=== PATIENT | male | born 1975 | race Caucasian/White ===

== ENCOUNTER 2020-04-02 13:01 | Outpatient (REF) | payer MEDICARE, MEDICAID, SELFPAY ==
--- NOTE | 2020-04-02 13:44 | XR_ITS ---
EXAMINATION: CHEST 2 VIEWS CLINICAL INFORMATION: Chest pain. COMPARISON: June 27, 2008. TECHNIQUE: PA and lateral views of the chest were obtained. FINDINGS: The cardiac silhouette is not enlarged. The mediastinal and hilar contours are unremarkable. There are neither pleural effusions nor pneumothoraces. There are no consolidations. The osseous structures are stable. XR/XR chest 2V IMPRESSION: No evidence for acute disease.
[2020-04-02 13:51] LABS: MANUAL DIFF FLAG NO
[2020-04-02 14:00] LABS: Basophils Percent Auto 0.7 % (0-2); Eosinophils Absolute Auto 0.3 X10*3/uL (0.0-0.4); Hematocrit 42.8 % (42-52); Imm Gran Abs Auto 0.02 X10*3/uL (0.00-0.03); Imm Gran Pct Auto 0.3 % (0.0-0.4); Lymphocytes Absolute Auto 1.7 X10*3/uL (1.2-4.9); Lymphocytes Percent Auto 28.9 % (20-40); Mean Corpuscular HGB Conc 32.7 g/dl (31.0-36.0); Mean Corpuscular Hemoglobin 29.9 pg (27.0-33.0); Mean Corpuscular Volume 91.5 fL (80-98); Mean Platelet Volume 9.1 fL (9.4-12.4); Monocytes Absolute Auto 0.5 X10*3/uL (0.1-1.2); Monocytes Percent Auto 9.2 % (2-11); Neutrophils Absolute Auto 3.2 X10*3/uL (2.0-8.3); Neutrophils Percent Auto 55.9 % (45-73); Platelet Count 280 X10*3/uL (160-400); Red Blood Count 4.68 X10*6/uL (4.60-5.80); Red Cell Distribution Width 12.7 % (11.0-16.0); White Blood Count 5.8 X10*3/uL (4.8-10.8)
[2020-04-02 14:29] LABS: Alanine Aminotransferase < 6 U/L (0-40); Albumin Level 4.6 g/dL (3.5-5.0); Alkaline Phosphatase 90 U/L (39-117); Anion Gap 13 (12-20); Aspartate Amino Transferase 16 U/L (5-37); Bilirubin Total 0.7 mg/dL (0.0-1.0); Blood Urea Nitrogen 13 mg/dL (9-16); C Reactive Protein 0.53 mg/dL (< or = 0.50); Calcium 9.3 mg/dL (8.4-10.2); Carbon Dioxide 28 mmol/L (22-29); Chloride 104 mmol/L (96-108); Cholesterol 179 mg/dL; Estimated Glomerular Filt Rate > 60; Glucose Random 101 mg/dL (60-115); Potassium 4.4 mmol/l (3.3-5.1); Sodium 141 mmol/L (135-145)
== END 2020-04-02 13:02 | disposition home or self-care (01) ==
LOC: HO.LAB 13:01
PROVIDERS: PCP Internal Medicine; Visit Provider Internal Medicine
DX: R07.9 Chest pain, unspecified (principal)
CPT/HCPCS: 36415; 71046; 80053; 82465; 85025; 86140

== ENCOUNTER → 2021-04-28 10:27 | Outpatient (BNVA) | payer MEDICARE, MEDICAID, SELFPAY | PROVIDERS: PCP Internal Medicine; Referring Provider Internal Medicine; Visit Provider Surgery | DX: L98.9 Disorder of the skin and subcutaneous tissue, unspecified (principal) | CPT/HCPCS: 99202 ==

== ENCOUNTER 2021-05-20 12:45 | Outpatient (REF) | payer MEDICARE, MEDICAID, SELFPAY ==
[2021-05-20 12:55] VITALS: BP 131/84; PULSE 101; RESP 16; TEMP 36.4; O2SAT 100; BMI 31.3
--- NOTE | 2021-05-20 13:25 | W.PM.OPN ---
Operative Note Operative Note Date of Service: 05/20/21 Narrative: Preop diagnosis: Skin lesion, left temporal area Postop diagnosis: Skin lesion, left temporal area Procedure: Excision of skin lesion, left temporal area under local anesthesia Surgeon: Ramón Villeda MD The patient is a 45-year-old male with a skin lesion in the left temporal area about 1 cm in widest dimension, earlier, superficially ulcerating, suggestive of basal cell carcinoma. He understood the technique of excision under local anesthesia. He was aware of the risks, benefits, and alternatives He was brought to the minor procedure room and placed supine with the head turned to the right expose the lesion. The areas prepped and draped. Lidocaine 1% was used for local anesthesia. An elliptical incision was made in the skin surrounding this lesion using blade 15. We made sure that there were margins of normal looking skin. This incision was carried down through the full-thickness of the skin and part of subcutaneous layer to excise this entire lesion. This was sent as a specimen. I closed the incision with full-thickness nylon 5 0 interrupted sutures. Steri-Strips were then applied . He tolerated procedure well. There were no complications noted. He was given wound care instructions and will be seen in the office for removal sutures next week.
== END 2021-05-20 12:46 | disposition home or self-care (01) ==
LOC: HO.MS 12:45
PROVIDERS: PCP Internal Medicine; Visit Provider Surgery
PROC: (CPT 11642; principal; 2021-05-20 13:00)
DX: C44.319 Basal cell carcinoma of skin of other parts of face (principal); H91.90 Unspecified hearing loss, unspecified ear
CPT/HCPCS: 11642; 88305

== ENCOUNTER → 2021-06-02 13:03 | Outpatient (BNVA) | payer MEDICARE, MEDICAID, SELFPAY | PROVIDERS: PCP Internal Medicine; Referring Provider Internal Medicine; Visit Provider Surgery | DX: Z48.3 Aftercare following surgery for neoplasm (principal); Z85.828 Personal history of other malignant neoplasm of skin | CPT/HCPCS: 99212 ==

== ENCOUNTER 2021-06-17 14:32 | Outpatient (REF) | payer MEDICARE, MEDICAID, SELFPAY ==
--- NOTE | ~2021-06-17 | US_ITS ---
EXAMINATION: US VENOUS ULTRASOUND WITH DOPPLER LOWER EXTREMITY, LEFT CLINICAL INFORMATION: Left calf pain COMPARISON: None TECHNIQUE: Ultrasound of the deep veins is performed from the hip to the calf with compression sonography and color and pulse Doppler assessment. Spectral analysis with color-flow imaging is performed. FINDINGS: There is normal venous compression and respiratory variation and augmented flow. The visualized common femoral vein, superficial femoral vein, profunda femoral vein, popliteal vein, and the trifurcation region shows no evidence of deep venous thrombosis. There is no significant popliteal fossa cyst. If the patient's symptoms persist, followup ultrasound in 5 days 7 days might be of value to exclude proximal propagation from a non-visualized calf vein. US/US venous duplex LE LT IMPRESSION: No DVT demonstrated in the left lower extremity.
== END 2021-06-17 14:33 | disposition home or self-care (01) ==
LOC: HO.US 14:32
PROVIDERS: PCP Internal Medicine; Visit Provider Internal Medicine
DX: M79.662 Pain in left lower leg (principal)
CPT/HCPCS: 93971

== ENCOUNTER 2021-09-14 11:23 | Outpatient (REF) | payer MEDICARE, MEDICAID, OTHER, SELFPAY ==
[2021-09-14 11:48] LABS: MANUAL DIFF FLAG NO
[2021-09-14 12:24] LABS: Appearance Urine HAZY; Color Urine YELLOW; Glucose Urine UA NEG (NEG); Leukocyte Esterase Urine NEG (NEG); Nitrite Urine NEG (NEG); Specific Gravity - Urine >= 1.030 (1.005-1.025); UACC Culture Trigger NO; Urine Blood NEG (NEG); Urine Ketones 5 MG/DL (NEG); Urine Protein 1+ MG/DL (NEG-TRACE)
[2021-09-14 12:25] LABS: Basophils Percent Auto 0.2 % (0-2); Eosinophils Absolute Auto 0.1 X10*3/uL (0.0-0.4); Hematocrit 40.8 % (42.0-52.0); Hemoglobin 13.5 g/dl (14.0-18.0); Imm Gran Abs Auto 0.06 X10*3/uL (0.00-0.03); Imm Gran Pct Auto 0.5 % (0.0-0.4); Lymphocytes Percent Auto 8.6 % (20-40); Mean Corpuscular HGB Conc 33.1 g/dl (31.0-36.0); Mean Corpuscular Hemoglobin 29.9 pg (27.0-33.0); Mean Corpuscular Volume 90.3 fL (80.0-98.0); Mean Platelet Volume 9.6 fL (9.4-12.4); Monocytes Percent Auto 9.1 % (2-11); Neutrophils Absolute Auto 9.3 x10*3/uL (2.0-8.3); Neutrophils Percent Auto 80.6 % (45-73); Platelet Count 250 X10*3/uL (160-400); Red Blood Count 4.52 X10*6/uL (4.60-5.80); Red Cell Distribution Width 13.2 % (11.0-16.0); White Blood Count 11.5 X10*3/uL (4.8-10.8)
[2021-09-14 12:31] LABS: D Dimer High Sensitivity 243 NG/ML
[2021-09-14 12:44] LABS: Bacteria Urine TRACE /LPF; RBC Urine 0-2 /HPF (0); WBC Urine 0-2 /HPF (0-4)
[2021-09-14 12:45] LABS: Mucus Urine 1+ /LPF
[2021-09-14 12:51] LABS: Troponin-I High Sensitivity < 3.5 ng/L (<3.5-35.0)
[2021-09-14 12:53] LABS: Alanine Aminotransferase < 6 U/L (0-40); Albumin Level 4.4 g/dL (3.5-5.0); Alkaline Phosphatase 86 U/L (39-117); Anion Gap 15 (12-20); Aspartate Amino Transferase 9 U/L (5-37); Bilirubin Total 0.6 mg/dL (0.0-1.0); Blood Urea Nitrogen 12 mg/dL (9-16); C Reactive Protein 27.74 mg/dL (< or = 0.50); Calcium 9.8 mg/dL (8.4-10.2); Carbon Dioxide 27 mmol/L (22-29); Chloride 102 mmol/L (96-108); Estimated Glomerular Filt Rate > 60; Glucose Random 123 mg/dL (60-115); Potassium 3.9 mmol/L (3.3-5.1); Sodium 140 mmol/L (135-145); Total Protein 7.1 g/dL (6.5-8.0)
[2021-09-14 13:13] LABS: Free T4 (Free Thyroxine) 1.12 ng/dL (0.71-1.85)
[2021-09-14 14:17] LABS: Prostate Specific Antigen 0.29 ng/mL (<0.05-4.0)
== END 2021-09-14 11:24 | disposition home or self-care (01) ==
LOC: HO.LAB 11:23
PROVIDERS: PCP Internal Medicine; Visit Provider Internal Medicine
DX: Z12.5 Encounter for screening for malignant neoplasm of prostate (principal); R00.0 Tachycardia, unspecified; N32.89 Other specified disorders of bladder
CPT/HCPCS: 36415; 80053; 81001; 82550; 84153; 84439; 84443; 84484; 85025; 85379; 86140; 87086

== ENCOUNTER 2021-09-16 12:52 | Outpatient (REF) | payer MEDICARE, MEDICAID, OTHER, SELFPAY ==
--- NOTE | ~2021-09-16 | CT_ITS ---
EXAMINATION: CT ABDOMEN AND PELVIS WITH CONTRAST CLINICAL INFORMATION: Abdominal pain. Bladder spasms. COMPARISON: None TECHNIQUE: Multidetector volumetric images were obtained from the superior aspect of the liver through the pubic symphysis following administration 85 mL of Omnipaque 350 intravenous contrast. Sagittal and coronal reformatted images were obtained on the technologist's workstation. Oral contrast: No This CT examination was performed using dose optimization techniques as appropriate, variously including the following: *Automated exposure control *Adjustment of mA and/or kV according to patient size (this includes techniques or standardized protocols for targeted exams where dose is matched to indication/reason for exam; i.e. extremities or head) *Use of iterative reconstruction technique DLP: 736 mGy-cm FINDINGS: LUNG BASES: Minimal atelectatic changes seen in the lingula and right lower lobe. Heart size is normal. There is a small hiatal hernia. LIVER, GALLBLADDER, AND BILIARY TREE: The liver is normal in size, shape, and attenuation. No focal hepatic lesion or biliary ductal dilatation is present. The gallbladder is unremarkable with no evidence of radiopaque gallstones, gallbladder wall thickening, or obvious pericholecystic inflammatory changes. PANCREAS: Unremarkable. SPLEEN: Unremarkable. ADRENAL GLANDS: Unremarkable. KIDNEYS AND URETERS: The kidneys are normal in size, shape, and attenuation. No hydronephrosis, hydroureter, or calculi seen. No perinephric stranding. BLADDER: Unremarkable. GASTROINTESTINAL TRACT: There is a contained perforation of the cecum most likely from a diverticulitis. There is diffuse colonic diverticulosis with moderate constipation but no distention. The appendix is normal caliber. The small bowel loops are normal caliber. No free air or free fluid seen in the pelvis. ABDOMINAL WALL: No significant hernia is appreciated. LYMPH NODES: Normal. VASCULAR: Unremarkable. PELVIC VISCERA: The prostate gland is a normal size with central gland calcification. OSSEOUS STRUCTURES: Unremarkable. CT/CT abdomen pelvis w con IMPRESSION: Diffuse colonic diverticulosis with cecal diverticulitis and contained perforation. There is no free air, proximal bowel obstruction or free fluid. Mild constipation. Results were conveyed to Dr. Zheng immediately after exam at 1:45 PM and ER physician Dr. Mitchell at 3:40 PM on 09/16/2021. Fleischner guidelines were followed.
[2021-09-16] MEDS: iohexoL 350 MG/ML 100 ML INFUS..BTL IV (14:32)
== END 2021-09-16 12:53 | disposition home or self-care (01) ==
LOC: HO.CT 12:52
PROVIDERS: PCP Internal Medicine; Visit Provider Internal Medicine
DX: Z13.89 Encounter for screening for other disorder (principal)
CPT/HCPCS: 74177; Q9967

== ENCOUNTER 2021-09-16 14:23 | Inpatient (IN) | payer MEDICARE, MEDICAID, SELFPAY ==
[2021-09-16 14:26] VITALS: BP 141/93; PULSE 118; RESP 16; TEMP 36.3; O2SAT 96; BMI 31.8
--- NOTE | 2021-09-16 16:10 | ED_ITS ---
HPI - Abdominal Pain General Chief Complaint: Abdominal Pain Stated Complaint: abd cat scan Time Seen by Provider: 09/16/21 14:52 Source: patient Mode of arrival: ambulatory History of Present Illness HPI narrative: 46-year-old male with medical history Parkinson's, deaf, sent to ED by Dr. Zheng for abnormal CT, patient reports RLQ abdominal pain, constipation and mild nausea x1 week. Was seen in PCP office 2 days ago had labs, and outpatient CT today. Admits last BM yesterday. Also reports dysuria. Denies fever, chills, vomiting, diarrhea, hematuria, flank pain MD elicited complaint: abdominal pain Related Data Home Medications Medication Instructions Recorded Confirmed carbidopa ER 50 mg-levodopa 200 mg 1 tab PO BID 04/28/21 09/16/21 tablet,extended release clonazepam 1 mg tablet 1 mg PO BEDTIME PRN 04/28/21 09/16/21 paroxetine HCl 40 mg tablet 40 mg PO DAILY 04/28/21 09/16/21 pramipexole 0.25 mg tablet 0.25 mg PO TID 04/28/21 09/16/21 baclofen 20 mg tablet 1 tab PO BEDTIME 09/16/21 09/16/21 carbidopa 25 mg-levodopa 100 mg 1 tab PO TID 09/16/21 09/16/21 tablet pramipexole 0.125 mg tablet 1 tab PO TID 09/16/21 09/16/21 Allergies Allergy/AdvReac Type Severity Reaction Status Date / Time No Known Allergies Allergy Verified 06/02/21 13:14 Review of Systems Review of Systems Constitutional: No Fever, No Chills, No Fatigue, No Malaise ENT/Mouth: No Ear Pain, No Nasal Congestion, No sore throat, No Rhinorrhea, No Swallowing Difficulty Eyes: No Eye Pain, No Swelling, No Discharge, No Vision Changes Cardiovascular: No Chest Pain, No SOB, No Edema, No Palpitations Respiratory: No Cough, No Sputum, No Wheezing, No Smoke Exposure, No Dyspnea Gastrointestinal: + Nausea, No Vomiting, No Diarrhea, No Constipation, + Abdominal pain Genitourinary: + Dysuria, No Urinary Frequency, No Hematuria,No Urgency, No Flank Pain, No Urinary Flow Changes, No Hesitancy Musculoskeletal: No joint pain, No Myalgias, No Joint Swelling Skin: No Skin Lesions, No rash Neuro: No Weakness, No Dizziness, No Headache Yes all other systems are reviewed and are negative [facility] Past Medical History Attestation statement: The following information was validated with the patient. Medical History Basal cell carcinoma (BCC) Deaf Parkinsons disease Skin lesion of face Surgical History History of excision of pilonidal cyst (~1994) Family History Family History Other Colon cancer Esophageal cancer Social History Social History Advance Directives: No Advance Directives Information Provided: Yes Physical Exam ED Vital Signs: Vital Signs - 24 hr 09/16/21 14:26 Temperature 97.4 F Pulse Rate 118 H Respiratory Rate 16 Blood Pressure 141/93 H Pulse Oximetry 96 BMI result Body Mass Index 31.8 Const General: cooperative, healthy appearing and no acute distress Orientation/consciousness: patient oriented x3 Limitations: no limitations HENMT Head: Yes normal to inspection Ears: hearing grossly normal bilaterally General nose exam: Normal external nose present Face and sinus: Yes normal facial exam Eyes General: appearance normal, both eyes and all related structures EOM: EOMs intact bilaterally Neck Neck: Yes normal visual inspection and Yes no meningeal signs Resp Effort & Inspection: normal respiratory effort and no respiratory distress Auscultation: clear to auscultation bilaterally, no rales, no rhonchi and no wheezes Cardio Rate: regular rate and tachycardic Heart sounds: S1 normal heart sound present and S2 normal heart sound present GI Inspection: Yes normal to inspection Palpation (GI): Soft to palpation, Tenderness to palpation present (GI) in the RLQ; Negative for with no rebound tenderness, no guarding and not rigid General: Yes no CVA tenderness Back/Spine/Pelvis Back: no CVA tenderness Skin Rashes: no rashes Wounds: no wounds Neuro General: patient oriented x3 and no meningeal signs Gait exam (Neuro): Normal gait present Extrem General: Yes normal to inspection Course Course Course Narrative: Labs reviewed from 09/14/21 > mild leukocytosis of 11.5, CRP elevated CT abdomen pelvis w con IMPRESSION: Diffuse colonic diverticulosis with cecal diverticulitis and contained perforation. There is no free air, proximal bowel obstruction or free fluid. Mild constipation. >> call from [facility] taken by Dr. Mitchell > Levaquin/Flagyl ordered as well as 30mg/kg IVF. Surgery consulted -surgery, Dr. Matta evaluated patient in the ED, plan to admit for IV antibiotics and observation -no leukocytosis. H&H at patient's baseline. Lactic acid negative MDM - Abdominal Pain MDM Narrative Medical decision making narrative: 46-year-old male with medical history Parkinson's, deaf, sent to ED by Dr. Zheng for abnormal CT, patient reports RLQ abdominal pain, constipation and mild nausea x1 week. On exam tachycardic likely from pain, afebrile, NAD, abdomen tender in RLQ, no rebound or guarding. Concern for appendicitis vs diverticulitis vs UTI. Unlikely renal stone/pyelo Low concern for severe sepsis at this time as outpatient labs 2 days ago without leukocytosis, tachycardia likely from pain Plan: Labs, UA, CT, IVF, re-evaluate Medical Records Attestation: I reviewed the patient's medical records. Lab Data Attestation: I reviewed the patient's lab results. Result diagrams: 09/16/21 16:13 09/16/21 16:13 Labs: Lab Results 09/16/21 09/16/21 Range/Units 16:13 16:13 WBC 6.5 (4.8-10.8) X10*3/uL RBC 4.41 L (4.60-5.80) X10*6/uL Hgb 13.1 L (14.0-18.0) g/dl Hct 40.5 L (42.0-52.0) % MCV 91.8 (80.0-98.0) fL MCH 29.7 (27.0-33.0) pg MCHC 32.3 (31.0-36.0) g/dl RDW 13.2 (11.0-16.0) % Plt Count 237 (160-400) X10*3/uL MPV 9.1 L (9.4-12.4) fL Immature Gran % (Auto) 0.2 (0.0-0.4) % Neut % (Auto) 75.0 H (45-73) % Lymph % (Auto) 13.8 L (20-40) % [place] % (Auto) 8.0 (2-11) % Eos % (Auto) 2.5 (0-4) % Baso % (Auto) 0.5 (0-2) % Lymph # (Auto) 0.9 L (1.2-4.9) X10*3/uL [place] # (Auto) 0.5 (0.1-1.2) X10*3/uL Eos # (Auto) 0.2 (0.0-0.4) X10*3/uL Baso # (Auto) 0.0 (0.0-0.2) X10*3/uL Abs Immat Gran (auto) 0.01 (0.00-0.03) X10*3/uL Absolute Neuts (auto) 4.9 (2.0-8.3) x10*3/uL Absolute Nucleated RBC 0.000 (0.0-0.012) X10*3/uL Nucleated RBC % (auto) 0.0 (0.0-0.2) /100WBC Lactic Acid 0.9 (0.5-2.0) mmol/L Discharge Plan Discharge Clinical Impression: Diverticulitis of colon with perforation Patient Disposition: Admitted As Inpatient
--- NOTE | 2021-09-16 16:17 | PHA.MEDREC ---
Pharmacy Consult ? Medication Reconciliation Pharmacy has completed the medication reconciliation. Spoke with the patient who was able to confirm his home medications and he also had a list at bedside.
[2021-09-16] MEDS: 0.9 % Sodium Chloride 1,983 ML 1983 ML IV (16:19)
[2021-09-16 16:22] LABS: MANUAL DIFF FLAG NO
[2021-09-16 16:23] LABS: Basophils Percent Auto 0.5 % (0-2); Eosinophils Absolute Auto 0.2 X10*3/uL (0.0-0.4); Eosinophils Percent Auto 2.5 % (0-4); Hematocrit 40.5 % (42.0-52.0); Hemoglobin 13.1 g/dl (14.0-18.0); Imm Gran Abs Auto 0.01 X10*3/uL (0.00-0.03); Imm Gran Pct Auto 0.2 % (0.0-0.4); Lymphocytes Absolute Auto 0.9 X10*3/uL (1.2-4.9); Lymphocytes Percent Auto 13.8 % (20-40); Mean Corpuscular HGB Conc 32.3 g/dl (31.0-36.0); Mean Corpuscular Hemoglobin 29.7 pg (27.0-33.0); Mean Corpuscular Volume 91.8 fL (80.0-98.0); Mean Platelet Volume 9.1 fL (9.4-12.4); Monocytes Absolute Auto 0.5 X10*3/uL (0.1-1.2); Neutrophils Absolute Auto 4.9 x10*3/uL (2.0-8.3); Platelet Count 237 X10*3/uL (160-400); Red Blood Count 4.41 X10*6/uL (4.60-5.80); Red Cell Distribution Width 13.2 % (11.0-16.0); White Blood Count 6.5 X10*3/uL (4.8-10.8)
[2021-09-16] MEDS: metroNIDAZOLE/NS 500 MG/100 ML PIGGYBACK 100 MG IV (16:23)
--- NOTE | 2021-09-16 16:30 | PM.HPGS ---
History of Present Illness History of Present Illness Date of Service: 09/16/21 Chief complaint: abd cat scan Narrative: Braxton Corea is a 46 year old male presenting with complaints of abdominal pain in the right lower quadrant. The pain developed over the last several days but became more severe over the last 24 hours. Initially thought he had appendicitis and presented to his PCP. A CT of the abdomen and pelvis was subsequently obtained which revealed a contained perforation probably from cecal diverticulitis. A normal appendix is identified. Today the patient actually feels somewhat improved but still has tenderness in the right lower quadrant. He denies nausea, vomiting, fever, or chills. He is constipated however. Denies any bleeding in his bowels. Review of Systems Constitutional: Constitutional: Denies chills, Denies fever(s), Denies headache(s) and Denies poor appetite ENT: Denies dizziness and Denies headache(s) Comments: Deafness (patient is able to read lips.) Cardiovascular: Cardiovascular: Denies chest pain, Denies rapid heart rate, Denies palpitations and Denies slow heart rate Respiratory: Respiratory: Denies chest congestion, Denies cough, Denies pain on inspiration and Denies wheezing Gastrointestinal: Gastrointestinal: Reports abdominal pain, Denies bloating, Denies change in stool character, Reports constipation, Denies diarrhea, Denies nausea, Denies vomiting and Denies hematemesis Musculoskeletal: Musculoskeletal: Denies back pain, Denies arthralgias, Denies joint swelling and Denies numbness Integumentary/Breasts: Skin/Breast: Denies change in pigmentation, Denies erythema and Denies rash Neurologic: Denies dizziness, Denies headache(s) and Denies numbness Comments: Parkinson's disease Psychiatric: Psychiatric: Denies anxiety and Denies depression Endocrine: Endocrine: Denies palpitations Hematologic/Lymphatic: Hematologic/Lymphatic: Denies easy bleeding, Denies easy bruising and Denies lymphadenopathy Allergic/Immunologic: Allergic/Immunologic: Denies wheezing PMFSH Past Medical History Medical History (Updated 09/16/21 @ 16:26 by HANNAH Farrar) Basal cell carcinoma (BCC) Deaf Parkinsons disease Skin lesion of face Family History Family History Other Colon cancer Esophageal cancer Surgical History Surgical History History of excision of pilonidal cyst (~1994) Social History Social History Advance Directives: No Advance Directives Information Provided: Yes Meds Allergies Allergy/AdvReac Type Severity Reaction Status Date / Time No Known Allergies Allergy Verified 06/02/21 13:14 Active Medications: Current Medications Acetaminophen (Acetaminophen 325 Mg Tablet) 650 mg PO QID PRN PRN Reason: headache, temp > 101 Hydromorphone HCl (Hydromorphone Hcl 1 Mg/Ml Syringe) 0.5 mg IVPUSH Q4H PRN; Protocol PRN Reason: Pain, Severe (Pain Scale 7-10) Sodium Chloride (Ns) 1,983 mls @ 1,983 mls/hr IV .Q1H STA Stop: 09/16/21 16:54 Last Admin: 09/16/21 16:19 Dose: 1,983 mls/hr Documented by: Levofloxacin (Levaquin) 750 mg in 150 mls @ 100 mls/hr IV ONCE ONE Stop: 09/16/21 17:24 Metronidazole (Flagyl) 500 mg in 100 mls @ 100 mls/hr IV ONCE ONE Stop: 09/16/21 16:54 Last Admin: 09/16/21 16:23 Dose: 100 mls/hr Documented by: Dextrose/Lactated Ringer's ([email or web address]) 1,000 mls @ 125 mls/hr IVCONT .Q8H SAI Piperacillin Sod/Tazobactam (Sod 3.375 gm/ Sodium Chloride) 50 mls @ 100 mls/hr IV Q6H SAI Ondansetron HCl (Ondansetron Hcl 4 Mg/2 Ml Vial) 4 mg IVPUSH QID PRN PRN Reason: Nausea Oxycodone HCl (Oxycodone Hcl Immed Release 5 Mg Tablet) 5 mg PO Q6H PRN PRN Reason: Pain, Moderate (Pain Scale 4-6 Pharmacy Consult (Consult Rx Perform Med Rec) 1 each MISCELLANE ONCE PRN PRN Reason: Consult order Pharmacy Consult (Consult Rx Perform Med Rec) 1 each MISCELLANE ONCE PRN PRN Reason: Consult order Sodium Chloride (0.9 % Sodium Chloride Flush 3 Ml Syringe) 3 ml IVFLUSH [facility] Zolpidem Tartrate (Zolpidem Tartrate 5 Mg Tablet) 5 mg PO BEDTIME PRN PRN Reason: Insomnia Home Medications Medication Instructions Recorded Confirmed Last Taken Type carbidopa ER 50 mg-levodopa 200 mg 1 tab PO BID 04/28/21 09/16/21 09/16/21 History tablet,extended release clonazepam 1 mg tablet 1 mg PO BEDTIME PRN 04/28/21 09/16/21 09/15/21 History paroxetine HCl 40 mg tablet 40 mg PO DAILY 04/28/21 09/16/21 09/16/21 History pramipexole 0.25 mg tablet 0.25 mg PO TID 04/28/21 09/16/21 09/16/21 History baclofen 20 mg tablet 1 tab PO BEDTIME 09/16/21 09/16/21 09/15/21 History carbidopa 25 mg-levodopa 100 mg 1 tab PO TID 09/16/21 09/16/21 09/16/21 History tablet pramipexole 0.125 mg tablet 1 tab PO TID 09/16/21 09/16/21 09/16/21 History Physical Exam Vital Signs: Vital Signs: Last Vital Signs Temp 97.4 F 09/16/21 14:26 Pulse 118 H 09/16/21 14:26 Resp 16 09/16/21 14:26 BP 141/93 H 09/16/21 14:26 Pulse Ox 96 09/16/21 14:26 BMI result Body Mass Index 31.8 Const: General: cooperative, comfortable and well developed Nutritional Appearance: well nourished Orientation/consciousness: patient oriented x3 Eyes: Sclerae: sclerae normal EOM: EOMs intact bilaterally Neck: Neck: Yes normal visual inspection Resp: Effort & Inspection: normal respiratory effort, no cough, no respiratory distress and no stridor Cardio: Jugular venous distension: no JVD GI: Inspection: Yes normal to inspection Palpation (GI): Soft to palpation, nontender, no guarding and not rigid Skin: General skin exam: dry skin Rashes: no rashes Neuro: General: patient oriented x3 and no focal motor deficits Extrem: General: Yes full ROM and Yes no clubbing, cyanosis or edema Psych: Appearance: grossly normal Results Results Labs: Short CBC 09/16/21 Range/Units 16:13 WBC 6.5 (4.8-10.8) X10*3/uL Hgb 13.1 L (14.0-18.0) g/dl Hct 40.5 L (42.0-52.0) % Plt Count 237 (160-400) X10*3/uL Abdomen CT scan report/results: image reviewed CT scan - pelvis: image reviewed Assessment and Plan (1) Diverticulitis of colon with perforation: Status: Acute Plan 46-year-old male patient presenting with complaints of abdominal pain in the right lower quadrant initially thought to have acute appendicitis however after workup with CT of the abdomen and pelvis, patient was identified as having perforated cecal diverticulitis. On examination the patient has some mild tenderness in the right lower quadrant without rebound or guarding. WBC is normal. We discussed the options of either surgical exploration verses non operative management with IV antibiotics. As his symptoms are fairly mild and is WBC is normal, he is a good candidate for non operative management. He understands that if his symptoms worsen he may require surgical exploration and a possible ostomy. I will plan on repeating the CT abdomen pelvis in 1-2 days depending on his symptoms. I will keep him NPO except for meds and start Zosyn 3.375 g IV q.6 hours. Findings were also discussed with his brother. Quality Stroke Does the patient have a stroke diagnosis?: No VTE Prior VTE?: No VTE Risk Level:: Surgical - moderate VTE Device Contraindication: N/A - Device Ordered VTE Drug Contraindication: Treatment Not Indicated Procedures Date of Service Date of Service: 09/16/21
[2021-09-16 16:35] LABS: Lactic Acid 0.9 mmol/L (0.5-2.0)
[2021-09-16 16:44] LABS: COVID-19 Test Negative (Negative)
[2021-09-16 16:50] LABS: Alanine Aminotransferase < 6 U/L (0-40); Albumin Level 3.8 g/dL (3.5-5.0); Alkaline Phosphatase 88 U/L (39-117); Anion Gap 17 (12-20); Aspartate Amino Transferase 14 U/L (5-37); Bilirubin Direct < 0.2 mg/dL (0.0-0.5); Bilirubin Total 0.5 mg/dL (0.0-1.0); Blood Urea Nitrogen 11 mg/dL (9-16); C Reactive Protein 10.91 mg/dL (< or = 0.50); Carbon Dioxide 23 mmol/L (22-29); Chloride 106 mmol/L (96-108); Creatinine Clr Calc Pharmacy 131.7; Estimated Glomerular Filt Rate > 60; Glucose Random 92 mg/dL (60-115); Lipase 14 U/L (8-78); Magnesium 2.1 mg/dL (1.6-2.6); Potassium 4.8 mmol/L (3.3-5.1); Sodium 141 mmol/L (135-145); Total Protein 6.8 g/dL (6.5-8.0)
[2021-09-16 16:56] LABS: Erythrocyte Sedimentation Rate 72 MM/HR (0-15)
[2021-09-16 17:13] VITALS: BP 136/83; PULSE 97; RESP 10; TEMP 36.8; O2SAT 96
[2021-09-16] MEDS: levoFLOXacin/D5W 750 MG/150 ML PIGGYBACK 100 MG IV (17:17)
[2021-09-16 17:26] LABS: Appearance Urine CLEAR; Color Urine YELLOW; Glucose Urine UA NEG (NEG); Leukocyte Esterase Urine NEG (NEG); Nitrite Urine NEG (NEG); Urine Blood NEG (NEG); Urine Ketones NEG (NEG); Urine Protein NEG (NEG-TRACE)
[2021-09-16] MEDS: Piperacillin Sodium/Tazobactam 3.375 GM in 0.9 % Sodium Chloride 50 ML IV (19:21)
[2021-09-16] MEDS: Dextrose 5 % and Lactated Ring 1,000 ML 125 ML IVCONT (19:22)
[2021-09-16 20:32] VITALS: BP 136/68; PULSE 103; RESP 18; TEMP 36.2; O2SAT 94
[2021-09-16] MEDS: Pramipexole Di-HCL 0.125 MG TABLET PO (21:32)
[2021-09-16] MEDS: 0.9 % Sodium Chloride Flush 3 ML SYRINGE IVFLUSH (21:32)
[2021-09-16] MEDS: Pramipexole Di-HCL 0.25 MG TABLET PO (21:32)
[2021-09-16] MEDS: Carbidopa/Levodopa CR 50/200 TABLET.ER 1 TAB PO (21:32)
[2021-09-16] MEDS: Baclofen 20 MG TABLET PO (21:32)
[2021-09-16] MEDS: Carbidopa/Levodopa 25/100 TABLET 1 TAB PO (21:32)
[2021-09-16 23:41] VITALS: BP 118/62; PULSE 96; RESP 18; TEMP 36.4; O2SAT 95
[2021-09-17] MEDS: Piperacillin Sodium/Tazobactam 3.375 GM in 0.9 % Sodium Chloride 50 ML IV ×5 (01:03→23:52)
[2021-09-17] MEDS: Dextrose 5 % and Lactated Ring 1,000 ML 125 ML IVCONT ×3 (04:40→21:14)
[2021-09-17 06:29] LABS: MANUAL DIFF FLAG NO
[2021-09-17 06:47] LABS: Basophils Percent Auto 0.4 % (0-2); Eosinophils Absolute Auto 0.2 X10*3/uL (0.0-0.4); Eosinophils Percent Auto 3.1 % (0-4); Hematocrit 37.7 % (42.0-52.0); Hemoglobin 12.1 g/dl (14.0-18.0); Imm Gran Abs Auto 0.03 X10*3/uL (0.00-0.03); Imm Gran Pct Auto 0.4 % (0.0-0.4); Lymphocytes Absolute Auto 1.3 X10*3/uL (1.2-4.9); Lymphocytes Percent Auto 19.1 % (20-40); Mean Corpuscular HGB Conc 32.1 g/dl (31.0-36.0); Mean Corpuscular Hemoglobin 29.6 pg (27.0-33.0); Mean Corpuscular Volume 92.2 fL (80.0-98.0); Monocytes Absolute Auto 0.6 X10*3/uL (0.1-1.2); Monocytes Percent Auto 9.2 % (2-11); Neutrophils Absolute Auto 4.6 x10*3/uL (2.0-8.3); Neutrophils Percent Auto 67.8 % (45-73); Platelet Count 261 X10*3/uL (160-400); Red Blood Count 4.09 X10*6/uL (4.60-5.80); White Blood Count 6.8 X10*3/uL (4.8-10.8)
[2021-09-17 07:26] LABS: Anion Gap 12 (12-20); Blood Urea Nitrogen 7 mg/dL (9-16); Carbon Dioxide 27 mmol/L (22-29); Chloride 105 mmol/L (96-108); Creatinine Clr Calc Pharmacy 137.2; Estimated Glomerular Filt Rate > 60; Glucose Random 109 mg/dL (60-115); Potassium 3.9 mmol/L (3.3-5.1); Sodium 139 mmol/L (135-145)
[2021-09-17 07:40] VITALS: BP 136/76; PULSE 95; RESP 18; TEMP 36.1; O2SAT 96
--- NOTE | 2021-09-17 07:45 | P.PNGS_ITS ---
Subjective Subjective Date of Service: 09/17/21 Interval history: Patient denies significant abdominal pain this morning. He reports passing some flatus but denies bowel. Denies nausea or vomiting. He reports feeling improved. Physical Exam Vital Signs: Vital Signs: Last Vital Signs Temp 96.9 F 09/17/21 07:40 Pulse 95 09/17/21 07:40 Resp 18 09/17/21 07:40 BP 136/76 09/17/21 07:40 Pulse Ox 96 09/17/21 07:40 BMI result Body Mass Index 31.8 Const: General: comfortable and no acute distress Nutritional Appearance: well nourished Orientation/consciousness: patient oriented x3 Limitations: no limitations HEENT: Head: Yes normocephalic and Yes atraumatic Ears: hearing grossly impaired Resp: Effort & Inspection: normal respiratory effort, able to speak in complete sentences, no audible wheezes, no cough and no respiratory distress GI: Other: Soft, nondistended, mild tenderness to deep palpation in the right lower quadrant without rebound, guarding, or rigidity. Neuro: General: patient oriented x3 Extrem: Other: No edema, normal range of motion Objective Data Active Medications Acetaminophen (Acetaminophen 325 Mg Tablet) 650 mg PO QID PRN PRN Reason: headache, temp > 101 Baclofen (Baclofen 20 Mg Tablet) 20 mg PO BEDTIME [facility] Last Admin: 09/16/21 21:32 Dose: 20 mg Documented by: ANTOIC Carbidopa/Levodopa (Carbidopa/Levodopa 25/100 Tablet) 1 tab PO TID [facility] Last Admin: 09/16/21 21:32 Dose: 1 tab Documented by: ANTOIC Carbidopa/Levodopa (Carbidopa/Levodopa Cr 50/200 Tablet.Er) 1 tab PO BID [facility] Last Admin: 09/16/21 21:32 Dose: 1 tab Documented by: ANTOIC Clonazepam (Clonazepam 1 Mg Tablet) 1 mg PO BEDTIME PRN PRN Reason: Insomnia Hydromorphone HCl (Hydromorphone Hcl 1 Mg/Ml Syringe) 0.5 mg IVPUSH Q4H PRN; Protocol PRN Reason: Pain, Severe (Pain Scale 7-10) Dextrose/Lactated Ringer's (D5lr) 1,000 mls @ 125 mls/hr IVCONT .Q8H [facility] Last Admin: 09/17/21 04:40 Dose: 125 mls/hr Documented by: DEVAN Piperacillin Sod/Tazobactam (Sod 3.375 gm/ Sodium Chloride) 50 mls @ 100 mls/hr IV Q6H [facility] Last Infusion: 09/17/21 06:47 Dose: 0 mls/hr Documented by: ANTOIC Ondansetron HCl (Ondansetron Hcl 4 Mg/2 Ml Vial) 4 mg IVPUSH Q8H PRN PRN Reason: Nausea Oxycodone HCl (Oxycodone Hcl Immed Release 5 Mg Tablet) 5 mg PO Q6H PRN PRN Reason: Pain, Moderate (Pain Scale 4-6 Paroxetine HCl (Paroxetine Hcl 40 Mg Tablet) 40 mg PO DAILY [facility] Pharmacy Consult (Consult Rx Perform Med Rec) 1 each MISCELLANE ONCE PRN PRN Reason: Consult order Pramipexole Dihydrochloride (Pramipexole Di-Hcl 0.125 Mg Tablet) 0.125 mg PO TID [facility] Last Admin: 09/16/21 21:32 Dose: 0.125 mg Documented by: DEVAN Pramipexole Dihydrochloride (Pramipexole Di-Hcl 0.25 Mg Tablet) 0.25 mg PO TID [facility] Last Admin: 09/16/21 21:32 Dose: 0.25 mg Documented by: DEVAN Sodium Chloride (0.9 % Sodium Chloride Flush 3 Ml Syringe) 3 ml IVFLUSH QSHIFT [facility] Last Admin: 09/16/21 21:32 Dose: 3 ml Documented by: DEVAN Labs CBC & Chem 7: 09/17/21 06:19 09/17/21 06:19 Labs: Laboratory Results - last 24 hr 09/16/21 09/16/21 09/16/21 16:13 16:13 16:13 MCV 91.8 MCH 29.7 MCHC 32.3 RDW 13.2 Plt Count 237 MPV 9.1 L Immature Gran % (Auto) 0.2 Neut % (Auto) 75.0 H Lymph % (Auto) 13.8 L Harvey % (Auto) 8.0 Eos % (Auto) 2.5 Baso % (Auto) 0.5 Lymph # (Auto) 0.9 L Harvey # (Auto) 0.5 Eos # (Auto) 0.2 Baso # (Auto) 0.0 Abs Immat Gran (auto) 0.01 Absolute Neuts (auto) 4.9 Absolute Nucleated RBC 0.000 Nucleated RBC % (auto) 0.0 ESR Anion Gap 17 Estim Creat Clear Calc 131.7 Estimated GFR > 60 Random Glucose 92 Lactic Acid 0.9 Calcium 9.0 D Magnesium 2.1 Total Bilirubin 0.5 Direct Bilirubin < 0.2 AST 14 D ALT < 6 Alkaline Phosphatase 88 C-Reactive Protein 10.91 H Total Protein 6.8 Albumin 3.8 Lipase 14 Urine Color Urine Appearance Urine pH Ur Specific [place] Urine Protein Urine Glucose (UA) Urine Ketones Urine Blood Urine Nitrite Ur Leukocyte Esterase COVID-19 (JOJO) COVID-19 Integration Management Com 09/16/21 09/16/21 09/16/21 16:13 16:13 17:12 MCV MCH MCHC RDW Plt Count MPV Immature Gran % (Auto) Neut % (Auto) Lymph % (Auto) Harvey % (Auto) Eos % (Auto) Baso % (Auto) Lymph # (Auto) Harvey # (Auto) Eos # (Auto) Baso # (Auto) Abs Immat Gran (auto) Absolute Neuts (auto) Absolute Nucleated RBC Nucleated RBC % (auto) ESR 72 H Anion Gap Estim Creat Clear Calc Estimated GFR Random Glucose Lactic Acid Calcium Magnesium Total Bilirubin Direct Bilirubin AST ALT Alkaline Phosphatase C-Reactive Protein Total Protein Albumin Lipase Urine Color YELLOW Urine Appearance CLEAR Urine pH 7.0 Ur Specific [place] 1.010 Urine Protein NEG Urine Glucose (UA) NEG Urine Ketones NEG Urine Blood NEG Urine Nitrite NEG Ur Leukocyte Esterase NEG COVID-19 (JOJO) Negative COVID-19 Integration Management Com See Note 09/17/21 09/17/21 06:19 06:19 MCV 92.2 MCH 29.6 MCHC 32.1 RDW 13.0 Plt Count 261 MPV 9.0 L Immature Gran % (Auto) 0.4 Neut % (Auto) 67.8 Lymph % (Auto) 19.1 L Harvey % (Auto) 9.2 Eos % (Auto) 3.1 Baso % (Auto) 0.4 Lymph # (Auto) 1.3 Harvey # (Auto) 0.6 Eos # (Auto) 0.2 Baso # (Auto) 0.0 Abs Immat Gran (auto) 0.03 Absolute Neuts (auto) 4.6 Absolute Nucleated RBC 0.000 Nucleated RBC % (auto) 0.0 ESR Anion Gap 12 Estim Creat Clear Calc 137.2 Estimated GFR > 60 Random Glucose 109 Lactic Acid Calcium 9.0 Magnesium Total Bilirubin Direct Bilirubin AST ALT Alkaline Phosphatase C-Reactive Protein Total Protein Albumin Lipase Urine Color Urine Appearance Urine pH Ur Specific [place] Urine Protein Urine Glucose (UA) Urine Ketones Urine Blood Urine Nitrite Ur Leukocyte Esterase COVID-19 (JOJO) COVID-19 Clin Com Procedures Date of Service Date of Service: 09/17/21 Progress Note: A&P Assessment and plan (1) Diverticulitis of colon with perforation: Status: Acute Plan 46-year-old male patient presenting with complaints of abdominal pain in the right lower quadrant of several days duration found to have contained collection adjacent to the cecum suggestive of a localized perforation. Patient was admitted on 09/16/2021 started on IV Zosyn. Laboratories revealed normal WBC. Abdominal exam today is much improved with decreased abdominal tenderness and No peritoneal signs. Will continue with the IV antibiotics and start clear liquids today. Probable repeat CT in a.m. tomorrow. Patient will probably require elective cecal resection once the current episode resolves. Fall Risk Details Current Medications: Current Medications Acetaminophen (Acetaminophen 325 Mg Tablet) 650 mg PO QID PRN PRN Reason: headache, temp > 101 Baclofen (Baclofen 20 Mg Tablet) 20 mg PO BEDTIME [facility] Last Admin: 09/16/21 21:32 Dose: 20 mg Documented by: Carbidopa/Levodopa (Carbidopa/Levodopa 25/100 Tablet) 1 tab PO TID [facility] Last Admin: 09/16/21 21:32 Dose: 1 tab Documented by: Carbidopa/Levodopa (Carbidopa/Levodopa Cr 50/200 Tablet.Er) 1 tab PO BID [facility] Last Admin: 09/16/21 21:32 Dose: 1 tab Documented by: Clonazepam (Clonazepam 1 Mg Tablet) 1 mg PO BEDTIME PRN PRN Reason: Insomnia Hydromorphone HCl (Hydromorphone Hcl 1 Mg/Ml Syringe) 0.5 mg IVPUSH Q4H PRN; Protocol PRN Reason: Pain, Severe (Pain Scale 7-10) Dextrose/Lactated Ringer's (D5lr) 1,000 mls @ 125 mls/hr IVCONT .Q8H [facility] Last Admin: 09/17/21 04:40 Dose: 125 mls/hr Documented by: Piperacillin Sod/Tazobactam (Sod 3.375 gm/ Sodium Chloride) 50 mls @ 100 mls/hr IV Q6H [facility] Last Infusion: 09/17/21 06:47 Dose: Infused Documented by: Ondansetron HCl (Ondansetron Hcl 4 Mg/2 Ml Vial) 4 mg IVPUSH Q8H PRN PRN Reason: Nausea Oxycodone HCl (Oxycodone Hcl Immed Release 5 Mg Tablet) 5 mg PO Q6H PRN PRN Reason: Pain, Moderate (Pain Scale 4-6 Paroxetine HCl (Paroxetine Hcl 40 Mg Tablet) 40 mg PO DAILY [facility] Pharmacy Consult (Consult Rx Perform Med Rec) 1 each MISCELLANE ONCE PRN PRN Reason: Consult order Pramipexole Dihydrochloride (Pramipexole Di-Hcl 0.125 Mg Tablet) 0.125 mg PO TID [facility] Last Admin: 09/16/21 21:32 Dose: 0.125 mg Documented by: Pramipexole Dihydrochloride (Pramipexole Di-Hcl 0.25 Mg Tablet) 0.25 mg PO TID [facility] Last Admin: 09/16/21 21:32 Dose: 0.25 mg Documented by: Sodium Chloride (0.9 % Sodium Chloride Flush 3 Ml Syringe) [facility] Admin: 09/16/21 21:32 Dose: 3 ml Documented by: Time Spent With Patient Time: Total time spent is greater than 50% in coordination of care (as documented) at patient's floor/unit and/or counseling patient: No Severe Sepsis: No Severe Sepsis Quality Stroke Does the patient have a stroke diagnosis?: No VTE Prior VTE?: No VTE Risk Level:: Surgical - moderate VTE Device Contraindication: N/A - Device Ordered VTE Drug Contraindication: Treatment Not Indicated
[2021-09-17] MEDS: Carbidopa/Levodopa CR 50/200 TABLET.ER 1 TAB PO ×2 (07:57→21:12)
[2021-09-17] MEDS: Pramipexole Di-HCL 0.25 MG TABLET PO ×3 (07:58→21:12)
[2021-09-17] MEDS: Carbidopa/Levodopa 25/100 TABLET 1 TAB PO ×3 (07:58→21:12)
[2021-09-17] MEDS: Pramipexole Di-HCL 0.125 MG TABLET PO ×3 (07:58→21:12)
[2021-09-17] MEDS: PARoxetine HCL 40 MG TABLET PO (07:58)
--- NOTE | 2021-09-17 14:16 | MHC.CM.PN ---
PT WHO IS DEAF AND READS LIPS, REPORTS HE LIVES ALONE AND IS INDEPENDENT WITH CARE HE DENIES USE OF DME [facility] HE CONFIRMS HIS PCP IS ROLANDO RESTREPO. HE COMPLETED A HCP TODAY NAMING HIS MOTHER, NYDIA, HIS AGENT CURRENT DC PLAN IS HOME WITH NO SERVICES FAMILY TO TRANSPORT
[2021-09-17 15:50] VITALS: BP 125/68; PULSE 88; RESP 18; TEMP 36.7; O2SAT 97
--- NOTE | 2021-09-17 16:02 | MHC.CM.PN ---
NURSE CASE MANAGEMENT DISCHARGE PLAN WAS FOR SHORT TERM REHAB PATIENT AND FAMILY ADVICE AND CONCERNS, SHE WANTED TO GO TO AHORT TERM REHAB , BUT WAS CONSIDERING THE POSSIBLITITY OGF HOME WITH VNA FOR WOUND VAC DRESINGS CHANGES Q THIRD DAY . [facility]MEDICARE REFERRALS WERE SENT TO STR WITH IN CONTRACTS AND THE ONLY ON INTERESTED WAS DEREK CONNER , SHE ACCEPTED THIS AND THE LIASON SENT IT TO [facility] FOR INSURACE AUTH, ON 09/16/21 JUST RECIVED WORD FROM LIASON THAT [facility] DENIED AUTH FOR SHORT TERM REHAB NO SKKILL, PATIENT VOCED [facility] WELL FAMILY INPUT AND SHE WANTED TO APPEAL THEIR DECISION THAT SHE DID NOT REQUIRE THE STR SHE UNDERSTANDS THAT SHE MAY BE CONSIDERED TO NOT BE SKILLABLE OF THIS WOUND VAC AND ITS PLACEMENT HAS NOW LIMITED HER INDEPENDEDNC IN CARRING OUT HER ADLS AND MOBILITY SHE WOULD HAVE TO RECLINE ON HER SIDE WHICH WILL MAKE IT VERTY INACCESSABLE TO CARRY THIS OUT, AND WANTED TO [facility] I GAVE HER THE NUMBER FOR THE APPEAL PROCESS TO [facility] REQUESTING PEER TO- [phone] AND NEEDS TO BE COMPLETE BEFORE 12 NOON ON Monday09/20/21 SHE CALLED FOR THE APPEALS 2 SHE HAS SPOKEN WITH HER FAMILY AND IS HAVING SOMEONE BRING IN HER ELECTRIC WHEELCHAIR HER TIME TO SIT SIDEWAYS IN IT IS LIMITED AND THE PHYSICANS DO NOT WANT TO HAVE HER PUT ANY PRESSURE ON IT . SHE WILL TRY THIS WEEKEDND 3. SPOKE TO HOSPITLAIT AND CASE MANAGEMENT TYPER , ABOUT THIS CASE [facility] FROM [facility] (WOUND VAC HAS BEEN DELIVERED TO THE HOSPITAL LATE YET FOR ANTICIPATED D/C HOME. 4, SHE ALSO WANTS TO TALK WITH HER HOSPITLAIST AND SURGEON REGARDING HER CUREENT MEDICAL RECORD AND WANTS TO REVIEW IT , I EXPLIANED ABOUT THE HOSPITAL PORTAL AND SHE WILL BE WORKING ON GETTIN ON IT WITH THE HELP OF HER FAMILY 5.DICE MAKER ADMINISTRATOR IS OF PATIENT KALIE FOR APPEAL , SHE WAS ABLE TO SECURE VNA NURISNG VISIT FOR MONDAY TO CHANGE THE WOUND VAC FORM THE [facility] IF PATIENT DECIDES TO CANCELL THE APPEAL AND GO HOME PLEASE CALL THE [place] [facility] AT THE MAIN NUMBER [phone] ASK FOR CHERI AND INFORM HER PATIENT WILL BE DISCHAGRED HOME OR NOT , PLEASE CALL BEFORE 1;30 VNA WILL NEED D/C ORDERS FOR WOUND VAC SETTINGS WELL SPECIFIC DRESSING AND FEUENCY ON DICHARGE INSTRUCTIONS, ALSO WILL NEED PENALOZA CATH SIZE AND TYPE AND THE FOLLOWING ORDERS A, IF PENALOZA FALLS OUT TO BE ABLE TO REPLAC AND IF PENALOZA BECOMES CLOGGED TO BE ABLE TO FLUSH WITH 30 CC STERILE WATER. NURSING TO GIVE NEW PENALOZA CATH FOR HOME AND ANY DRESSING SUPPLIES SHE MAY HAVE I HER ROOM, PATIENT HAS THE [employer] ACTI-VAC UN-OPENED IN HER ROOM AURA ROOF TILE LAYER IS AWARE OF THIS
[2021-09-17] MEDS: Baclofen 20 MG TABLET PO (21:12)
[2021-09-17 23:30] VITALS: BP 113/60; PULSE 85; RESP 18; TEMP 36.5; O2SAT 93
[2021-09-18] MEDS: Piperacillin Sodium/Tazobactam 3.375 GM in 0.9 % Sodium Chloride 50 ML IV ×4 (05:25→23:07)
[2021-09-18] MEDS: Dextrose 5 % and Lactated Ring 1,000 ML 125 ML IVCONT ×3 (05:27→23:04)
[2021-09-18 07:16] VITALS: BP 138/63; PULSE 90; RESP 16; TEMP 36.5; O2SAT 95
--- NOTE | 2021-09-18 08:43 | P.PNGS_ITS ---
Subjective Subjective Date of Service: 09/18/21 Interval history: Braxton feels much improved today with minimal abdominal pain. He reports having a bowel movement yesterday. He tolerated clear liquids and is eager to advanced to a regular diet. He denies fever or chills. Physical Exam Vital Signs: Vital Signs: Last Vital Signs Temp 97.7 F 09/18/21 07:16 Pulse 90 09/18/21 07:16 Resp 16 09/18/21 07:16 BP 138/63 09/18/21 07:16 Pulse Ox 95 09/18/21 07:16 BMI result Body Mass Index 31.8 Const: General: comfortable and no acute distress Nutritional Appearance: well nourished Orientation/consciousness: patient oriented x3 Limitations: no limitations HEENT: Other: Deaf, reads lips Resp: Effort & Inspection: normal respiratory effort, no audible wheezes, no cough and no respiratory distress GI: Other: Soft, mild tenderness in the left upper quadrant. No tenderness in the right lower or left lower quadrants. No rebound, guarding, or rigidity. Normal bowel sounds. Skin: Other: Warm, dry, no rash Neuro: General: patient oriented x3 Extrem: Other: No edema Objective Data Active Medications Acetaminophen (Acetaminophen 325 Mg Tablet) 650 mg PO QID PRN PRN Reason: headache, temp > 101 Baclofen (Baclofen 20 Mg Tablet) 20 mg PO BEDTIME [facility] Last Admin: 09/17/21 21:12 Dose: 20 mg Documented by: YURI Carbidopa/Levodopa (Carbidopa/Levodopa 25/100 Tablet) 1 tab PO TID [facility] Last Admin: 09/17/21 21:12 Dose: 1 tab Documented by: YURI Carbidopa/Levodopa (Carbidopa/Levodopa Cr 50/200 Tablet.Er) 1 tab PO BID [facility] Last Admin: 09/17/21 21:12 Dose: 1 tab Documented by: YURI Clonazepam (Clonazepam 1 Mg Tablet) 1 mg PO BEDTIME PRN PRN Reason: Insomnia Hydromorphone HCl (Hydromorphone Hcl 1 Mg/Ml Syringe) 0.5 mg IVPUSH Q4H PRN; Protocol PRN Reason: Pain, Severe (Pain Scale 7-10) Dextrose/Lactated Ringer's (D5lr) 1,000 mls @ 125 mls/hr IVCONT .Q8H [facility] Last Admin: 09/18/21 05:27 Dose: 125 mls/hr Documented by: YURI Piperacillin Sod/Tazobactam (Sod 3.375 gm/ Sodium Chloride) 50 mls @ 100 mls/hr IV Q6H [facility] Last Infusion: 09/18/21 06:09 Dose: 100 mls/hr Documented by: YURI Ondansetron HCl (Ondansetron Hcl 4 Mg/2 Ml Vial) 4 mg IVPUSH Q8H PRN PRN Reason: Nausea Oxycodone HCl (Oxycodone Hcl Immed Release 5 Mg Tablet) 5 mg PO Q6H PRN PRN Reason: Pain, Moderate (Pain Scale 4-6 Paroxetine HCl (Paroxetine Hcl 40 Mg Tablet) 40 mg PO DAILY [facility] Last Admin: 09/17/21 07:58 Dose: 40 mg Documented by: ANASTASIIA Pharmacy Consult (Consult Rx Perform Med Rec) 1 each MISCELLANE ONCE PRN PRN Reason: Consult order Pramipexole Dihydrochloride (Pramipexole Di-Hcl 0.125 Mg Tablet) 0.125 mg PO TID [facility] Last Admin: 09/17/21 21:12 Dose: 0.125 mg Documented by: YURI Pramipexole Dihydrochloride (Pramipexole Di-Hcl 0.25 Mg Tablet) 0.25 mg PO TID [facility] Last Admin: 09/17/21 21:12 Dose: 0.25 mg Documented by: YURI Sodium Chloride (0.9 % Sodium Chloride Flush 3 Ml Syringe) 3 ml IVFLUSH QSHIFT [facility] Last Admin: 09/18/21 00:36 Dose: Not Given Documented by: YURI Non-Admin Reason: IV Running Labs CBC & Chem 7: 09/17/21 06:19 09/17/21 06:19 Microbiology Microbiology Results: Microbiology 09/16/21 16:13 Blood Culture - Preliminary Blood - Venous No growth after 24 hours. 09/16/21 16:15 Blood Culture - Preliminary Blood - Venous No growth after 24 hours. Procedures Date of Service Date of Service: 09/18/21 Progress Note: A&P Assessment and plan (1) Diverticulitis of colon with perforation: Status: Acute Plan Patient is much improved with current antibiotic regime. He reports decreased abdominal pain located mainly in the left upper quadrant. He denies any pain in the right lower quadrant at the site of possible perforation. He is moving his bowels and denies fever, chills, nausea or vomiting. I will start him on a regular diet today. If this is well tolerated will plan on discharge tomorrow on oral antibiotics. Patient expressed understanding and agrees with the plan. Fall Risk Details Current Medications: Current Medications Acetaminophen (Acetaminophen 325 Mg Tablet) 650 mg PO QID PRN PRN Reason: headache, temp > 101 Baclofen (Baclofen 20 Mg Tablet) 20 mg PO BEDTIME [facility] Last Admin: 09/17/21 21:12 Dose: 20 mg Documented by: Carbidopa/Levodopa (Carbidopa/Levodopa 25/100 Tablet) 1 tab PO TID [facility] Last Admin: 09/17/21 21:12 Dose: 1 tab Documented by: Carbidopa/Levodopa (Carbidopa/Levodopa Cr 50/200 Tablet.Er) 1 tab PO BID [facility] Last Admin: 09/17/21 21:12 Dose: 1 tab Documented by: Clonazepam (Clonazepam 1 Mg Tablet) 1 mg PO BEDTIME PRN PRN Reason: Insomnia Hydromorphone HCl (Hydromorphone Hcl 1 Mg/Ml Syringe) 0.5 mg IVPUSH Q4H PRN; Protocol PRN Reason: Pain, Severe (Pain Scale 7-10) Dextrose/Lactated Ringer's (D5lr) 1,000 mls @ 125 mls/hr IVCONT .Q8H [facility] Last Admin: 09/18/21 05:27 Dose: 125 mls/hr Documented by: Piperacillin Sod/Tazobactam (Sod 3.375 gm/ Sodium Chloride) 50 mls @ 100 mls/hr IV Q6H [facility] Last Infusion: 09/18/21 06:09 Dose: Infused Documented by: Ondansetron HCl (Ondansetron Hcl 4 Mg/2 Ml Vial) 4 mg IVPUSH Q8H PRN PRN Reason: Nausea Oxycodone HCl (Oxycodone Hcl Immed Release 5 Mg Tablet) 5 mg PO Q6H PRN PRN Reason: Pain, Moderate (Pain Scale 4-6 Paroxetine HCl (Paroxetine Hcl 40 Mg Tablet) 40 mg PO DAILY [facility] Last Admin: 09/17/21 07:58 Dose: 40 mg Documented by: Pharmacy Consult (Consult Rx Perform Med Rec) 1 each MISCELLANE ONCE PRN PRN Reason: Consult order Pramipexole Dihydrochloride (Pramipexole Di-Hcl 0.125 Mg Tablet) 0.125 mg PO TID [facility] Last Admin: 09/17/21 21:12 Dose: 0.125 mg Documented by: Pramipexole Dihydrochloride (Pramipexole Di-Hcl 0.25 Mg Tablet) 0.25 mg PO TID [facility] Last Admin: 09/17/21 21:12 Dose: 0.25 mg Documented by: Sodium Chloride (0.9 % Sodium Chloride Flush 3 Ml Syringe) [facility] Last Admin: 09/18/21 00:36 Dose: Not Given Documented by: Time Spent With Patient Time: Total time spent is greater than 50% in coordination of care (as documented) at patient's floor/unit and/or counseling patient: Quality Stroke Does the patient have a stroke diagnosis?: No VTE Prior VTE?: No VTE Risk Level:: Surgical - moderate VTE Device Contraindication: N/A - Device Ordered VTE Drug Contraindication: Treatment Not Indicated
[2021-09-18] MEDS: Carbidopa/Levodopa 25/100 TABLET 1 TAB PO ×3 (09:36→20:13)
[2021-09-18] MEDS: PARoxetine HCL 40 MG TABLET PO (09:36)
[2021-09-18] MEDS: Pramipexole Di-HCL 0.25 MG TABLET PO ×3 (09:36→20:13)
[2021-09-18] MEDS: Pramipexole Di-HCL 0.125 MG TABLET PO ×3 (09:36→20:13)
[2021-09-18] MEDS: Carbidopa/Levodopa CR 50/200 TABLET.ER 1 TAB PO ×2 (09:36→20:13)
[2021-09-18 15:15] VITALS: BP 102/53; PULSE 102; RESP 18; TEMP 36.1; O2SAT 93
[2021-09-18] MEDS: Baclofen 20 MG TABLET PO (20:13)
[2021-09-19] VITALS: BP 109/69; PULSE 84; RESP 18; TEMP 36.4; O2SAT 95
[2021-09-19] MEDS: Piperacillin Sodium/Tazobactam 3.375 GM in 0.9 % Sodium Chloride 50 ML IV (05:35)
[2021-09-19 07:34] VITALS: BP 131/74; PULSE 85; RESP 18; TEMP 36.9; O2SAT 93
[2021-09-19] MEDS: Dextrose 5 % and Lactated Ring 1,000 ML 125 ML IVCONT (08:12)
[2021-09-19] MEDS: PARoxetine HCL 40 MG TABLET PO (08:13)
[2021-09-19] MEDS: Carbidopa/Levodopa 25/100 TABLET 1 TAB PO (08:13)
[2021-09-19] MEDS: Pramipexole Di-HCL 0.125 MG TABLET PO (08:13)
[2021-09-19] MEDS: Pramipexole Di-HCL 0.25 MG TABLET PO (08:13)
[2021-09-19] MEDS: Carbidopa/Levodopa CR 50/200 TABLET.ER 1 TAB PO (08:13)
--- NOTE | 2021-09-19 09:23 | PM.DS ---
DS: Providers Provider Date of Service: 09/19/21 Date of admission: 09/16/21 16:25 Date of discharge: 09/19/21 Primary care physician: Ramón Zheng MD Admitting clinician: Neftaly Matta Discharging clinician: Neftaly Matta DS: Diagnosis Discharge Diagnosis (1) Diverticulitis of colon with perforation: Status: Acute DS: Summary Hospital Course Hospital Course: Braxton Corea is a 46 year old male presenting with complaints of abdominal pain in the right lower quadrant.? The pain developed over the last several days but became more severe over the last 24 hours.? Initially thought he had appendicitis and presented to his PCP.? A CT of the abdomen and pelvis was subsequently obtained which revealed a contained perforation probably from cecal diverticulitis.? A normal appendix is identified.? Today the patient actually feels somewhat improved but still has tenderness in the right lower quadrant.? He denies nausea, vomiting, fever, or chills.? He is constipated however.? Denies any bleeding in his bowels. On examination he was noted to be afebrile with stable vital signs. Abdominal exam was benign with minimal tenderness in the left upper quadrant but generally no right lower quadrant tenderness. The patient was subsequently admitted to the surgery service for IV antibiotics (Zosyn 3.375 mg q.6 hours). Repeat laboratories on hospital day 2 revealed a normal WBC. He was started on clear liquids tolerated this well. On hospital day 3 he continued to do well and denies significant abdominal pain. He tolerated the clear liquids therefore he was advanced to a regular diet. He reported having a bowel movement without any bleeding. On hospital day 4. He remained afebrile. His abdominal exam remains soft and nondistended with no peritoneal signs. He tolerated the regular diet without nausea or vomiting or increased abdominal pain. He is discharged to home on 09/19/2021. He may continue with a regular diet. He was given a prescription for Augmentin and oxycodone. I have asked him to return to the office in 1 week for re-examination. If he continues to do well I will hold off on surgery however a colonoscopy may be warranted once the diverticulitis is deemed healed. Time spent discussing smoking cessation with patient: 3 to 10 minutes Status at Discharge Functional status at discharge: independent ambulation Overall status at discharge: patient is back to baseline Time Spent with Patient Time attestation: Total time spent providing and/or coordinating discharge services: Discharge coordination time: Less than 30 minutes Quality: Safe Use of Opioids Does Pt have an Active Cancer Diagnosis on the Problem List?: No Quality: Stroke Does the patient have a stroke diagnosis?: No Physical Exam Vital Signs: Vital Signs: Last Vital Signs Temp 98.5 F 09/19/21 07:34 Pulse 85 09/19/21 07:34 Resp 18 09/19/21 07:34 BP 131/74 09/19/21 07:34 Pulse Ox 93 09/19/21 07:34 BMI result Body Mass Index 31.8 Const: General: healthy appearing and no acute distress Nutritional Appearance: well nourished Orientation/consciousness: patient oriented x3 Limitations: no limitations Resp: Effort & Inspection: normal respiratory effort, no audible wheezes, no cough and no respiratory distress GI: Inspection: Yes normal to inspection Palpation (GI): Soft to palpation, nontender, no guarding, not rigid and hepatosplenomegaly present Percussion: Yes normal to percussion Skin: General skin exam: no rashes or lesions noted Neuro: General: patient oriented x3 DS: Data Data Completed and Pending Labs on day of discharge: Preliminary micro results at discharge 09/16/21 16:13 Blood Culture - Preliminary Blood - Venous No growth after 48 hours. 09/16/21 16:15 Blood Culture - Preliminary Blood - Venous No growth after 48 hours. Discharge Plan Discharge Patient Disposition: Home, Self-Care Discharge Diagnosis: Cecal diverticulitis with microperforation Referrals: Ramón Zheng MD [Primary Care Provider] - 1 Week Neftaly Matta MD [Physician] - 1 Week Discharge Medications: New oxycodone-acetaminophen [Endocet] 5-325 mg tablet 1 tab PO Q6H PRN (Reason: pain (scale score 7-10)) Qty: 14 0RF amoxicillin-pot clavulanate [Augmentin] 500-125 mg tablet 1 tab PO Q8H Qty: 30 0RF Continued baclofen 20 mg tablet 1 tab PO BEDTIME 0RF carbidopa-levodopa 25-100 mg tablet 1 tab PO TID 0RF pramipexole 0.125 mg tablet 1 tab PO TID 0RF paroxetine HCl 40 mg tablet 40 mg PO DAILY 0RF carbidopa-levodopa 50-200 mg tablet extended release 1 tab PO BID 0RF clonazepam 1 mg tablet 1 mg PO BEDTIME PRN (Reason: Insomnia) 0RF pramipexole 0.25 mg tablet 0.25 mg PO TID 0RF Discharge Orders: Discharge Order (Routine); Ordered 09/19/21 Ordered By: Neftaly Matta Diet: advance to usual diet Activity on Discharge: No heavy lifting Stand Alone Forms: Patient Portal Discharge page, Work/School Release Care Plan Goals: Return to normal diet and activity Health Concerns: Abdominal pain in lower abdomen Plan of Treatment: IV antibiotics converted to oral antibiotics Assessment: Cecal diverticulitis with micro perforation.
--- NOTE | 2021-09-19 09:38 | MHC.CM.PN ---
PT WILL DC HOME TODAY WITH NO SERVICES FAMILY TO TRANSPORT
== END 2021-09-19 12:17 | disposition home or self-care (01) | DRG 392 ==
LOC: HO.ED 16:26 → HO.EDOVER 16:56 → HO.S3 19:03
PROVIDERS: Physician Assistant; Admitting Provider Surgery; Emergency Provider Emergency Medicine; PCP Internal Medicine; Visit Provider Surgery
DX: K57.20 Diverticulitis of large intestine with perforation and abscess without bleeding (principal); G20 Parkinson's disease; H91.90 Unspecified hearing loss, unspecified ear; Z20.822 Contact with and (suspected) exposure to COVID-19; Z79.899 Other long term (current) drug therapy
CPT/HCPCS: 36415; 74177; 80048; 80053; 80076; 81001; 81003; 82550; 83605; 83690; 83735; 84153; 84439; 84443; 84484; 85025; 85379; 85652; 86140; 87040; 87086; 87635; 96361; 96374; 96375; 99285; J1956; J2543; Q9967

== ENCOUNTER → 2021-10-01 10:07 | Outpatient (BNVA) | payer MEDICARE, MEDICAID, SELFPAY | PROVIDERS: PCP Internal Medicine; Referring Provider Internal Medicine; Visit Provider Surgery | DX: K57.20 Diverticulitis of large intestine with perforation and abscess without bleeding (principal); K59.00 Constipation, unspecified; G20 Parkinson's disease; H91.90 Unspecified hearing loss, unspecified ear | CPT/HCPCS: 99202 ==

== ENCOUNTER → 2021-10-08 10:15 | Outpatient (BNVA) | payer MEDICARE, MEDICAID, SELFPAY | PROVIDERS: PCP Internal Medicine; Visit Provider Surgery | DX: K59.00 Constipation, unspecified (principal); K57.20 Diverticulitis of large intestine with perforation and abscess without bleeding; G20 Parkinson's disease; H91.90 Unspecified hearing loss, unspecified ear | CPT/HCPCS: 99212 ==

== ENCOUNTER 2021-11-17 12:01 | Outpatient (REF) | payer MEDICARE, MEDICAID, SELFPAY ==
[2021-11-17 13:44] LABS: MANUAL DIFF FLAG NO
[2021-11-17 13:54] LABS: Basophils Absolute Auto 0.1 X10*3/uL (0.0-0.2); Basophils Percent Auto 0.9 % (0-2); Eosinophils Absolute Auto 0.2 X10*3/uL (0.0-0.4); Eosinophils Percent Auto 3.8 % (0-4); Hematocrit 45.1 % (42.0-52.0); Hemoglobin 14.4 g/dl (14.0-18.0); Imm Gran Abs Auto 0.02 X10*3/uL (0.00-0.03); Imm Gran Pct Auto 0.3 % (0.0-0.4); Lymphocytes Absolute Auto 1.3 X10*3/uL (1.2-4.9); Lymphocytes Percent Auto 21.6 % (20-40); Mean Corpuscular HGB Conc 31.9 g/dl (31.0-36.0); Mean Corpuscular Hemoglobin 29.1 pg (27.0-33.0); Mean Corpuscular Volume 91.3 fL (80.0-98.0); Mean Platelet Volume 9.3 fL (9.4-12.4); Monocytes Absolute Auto 0.4 X10*3/uL (0.1-1.2); Monocytes Percent Auto 7.4 % (2-11); Neutrophils Absolute Auto 3.8 x10*3/uL (2.0-8.3); Platelet Count 275 X10*3/uL (160-400); Red Blood Count 4.94 X10*6/uL (4.60-5.80); White Blood Count 5.8 X10*3/uL (4.8-10.8)
[2021-11-17 14:28] LABS: Alanine Aminotransferase 8 U/L (0-40); Albumin Level 4.5 g/dL (3.5-5.0); Alkaline Phosphatase 111 U/L (39-117); Anion Gap 13 (12-20); Aspartate Amino Transferase 16 U/L (5-37); Bilirubin Total 0.5 mg/dL (0.0-1.0); Blood Urea Nitrogen 13 mg/dL (9-16); Calcium 9.7 mg/dL (8.4-10.2); Carbon Dioxide 31 mmol/L (22-29); Chloride 103 mmol/L (96-108); Estimated Glomerular Filt Rate > 60; Glucose Random 119 mg/dL (60-115); Potassium 4.6 mmol/L (3.3-5.1); Sodium 142 mmol/L (135-145); Total Protein 7.1 g/dL (6.5-8.0)
[2021-11-17 14:39] LABS: Estimated Average Glucose 105 mg/dL; Hemoglobin A1C 136.4942 umol/L; Hemoglobin A1c % 5.3 %
== END 2021-11-17 12:02 | disposition home or self-care (01) ==
LOC: HO.10HDL 12:01
PROVIDERS: Visit Provider Internal Medicine
DX: D64.9 Anemia, unspecified (principal); R73.9 Hyperglycemia, unspecified; K57.90 Diverticulosis of intestine, part unspecified, without perforation or abscess without bleeding
CPT/HCPCS: 36415; 80053; 83036; 85025

== ENCOUNTER → 2021-12-24 13:43 | Outpatient (REF) | payer MEDICARE, MEDICAID, SELFPAY ==
--- NOTE | 2021-12-24 14:00 | CA_ITS ---
Transthoracic Echocardiogram Patient (Last, First, Middle): Braxton Corea, Gender: Male Date of : 1975 Age: 46 Procedure Date: 12/24/2021 Procedure Type: Transthoracic Echocardiogram Location: OP Height: 172.72 cm Weight: 92.08 kg BSA: 2.06 m2 Heart Rate: bpm Hardboard Supervisor: TO/SB Referring MD: Ramón Zheng MD Symptoms: TACHYCARDIA,UNSPECIFIED Study Quality: Fair Conclusions: - Normal left ventricular size, thickness, systolic function, and wall motion. The visually estimated ejection fraction is between 55-60%. Diastolic function is normal for age. - Normal right ventricular cavity size and systolic function. Findings Left Ventricle Normal left ventricular size, thickness, systolic function, and wall motion. The visually estimated ejection fraction is between 55-60%. Diastolic function is normal for age. Right Ventricle Normal right ventricular cavity size and systolic function. Atria The left atrium is normal in size. The right atrium is normal in size. Aortic Valve Normal aortic valve structure and function. There is no aortic valve stenosis. There is no aortic valve regurgitation. Mitral Valve Normal mitral valve structure and function. There is no mitral valve regurgitation. There is no mitral valve stenosis. Pulmonic Valve The pulmonic valve is likely normal. Tricuspid Valve Normal tricuspid valve structure and function. There is trace tricuspid valve regurgitation. Normal right atrial pressure. There is no evidence of pulmonary hypertension. Great Vessels All visible segments of the aorta are normal in size. The pulmonary artery was not well visualized. Venous The inferior vena cava is normal in size and collapses greater than 50% with inspiration. Pericardium/Pleural There is no evidence of pericardial effusion. Measurements 2D Linear Measurements IVSd: 0.93 0.6-0.9/0.6-1.0 cm LVIDd: 4.20 3.9-5.3/4.2-5.9 cm LVIDd Index: 2.04 2.4-3.2/2.2-3.1 cm/m2 LVIDs: 2.81 2.0-3.6 cm LVPWd: 0.85 0.7-1.1 cm LA Diam: 3.30 2.7-3.8/3.0-4.0 cm LAIDs Index: 1.60 1.5-2.3 cm/m2 LV Mass: 145.46 67-162/88-224 g LV Mass Index: 70.61 43-95/49-115 g/m2 LVOT Diam: 2.40 3.0+(-)1.3 cm 2D Systolic Function EF 4C: 53.40 >55% EF 2C: 55.40 >55% EF BiP: 55.50 >55% Mitral Valve MV Pk E: 0.54 MV PK A: 0.72 MV Decel Time: 166.00 E/A: 0.80 E'Lateral: 8.22 E'Medial: 6.74 E/E' Med: 8.00 E/E' Lat: 6.60 PHT: 49.00 MVA PHT: 4.49 Decel Bremer: 3.25 Aortic Valve AoV Pk Jt: 1.16 AoV Mn Jt: 0.76 AoV VTI: 0.18 AoV Pk Grad: 5.00 Aov Mn Grad: 3.00 PEDRO Cont.VTI: 4.50 LVOT LVOT Pk Jt: 1.14 LVOT Mn Jt: 0.70 LVOT VTI: 0.18 LVOT Pk Grad: 5.00 LVOT Mn Grad: 2.00 LVOT Diam: 2.40 LVOT Area: 4.52 Diastolic Function MV Pk E: 0.54 MV Pk A: 0.72 E/A: 0.80 E'Medial: 6.74 E/E' Med: 8.00 E' Laterial: 8.22 E/E' Lat: 6.60 Right Ventricle TAPSE (mm): 18.20 TVS' Jt: 10.20 Tricuspid Valve TR Pk Jt: 1.64 TR Pk Grad: 11.00 RA Press: 3.00 RVSP: 14.00 Great Vessels Aorta Sinus of Valsalva: 3.45 2.0-3.[address] Ridge: 2.70 1.7-3.4 cm Ao Asc: 3.20 2.1-3.4 cm Ao Arch: 3.00 Updated in Other Vendor System with Status of Final Abebe Vallejo MD electronically signed on 12/26/2021 12:33:26 PM with status of Final
== END ==
LOC: HO.CARD 13:43
PROVIDERS: PCP Internal Medicine; Visit Provider Internal Medicine
DX: R00.0 Tachycardia, unspecified (principal)
CPT/HCPCS: 93306

== ENCOUNTER 2022-03-08 12:55 | Outpatient (REF) | payer MEDICARE, MEDICAID, SELFPAY ==
[2022-03-08 13:13] LABS: MANUAL DIFF FLAG NO
[2022-03-08 14:02] LABS: Basophils Absolute Auto 0.1 X10*3/uL (0.0-0.2); Basophils Percent Auto 0.8 % (0-2); Eosinophils Absolute Auto 0.3 X10*3/uL (0.0-0.4); Eosinophils Percent Auto 3.6 % (0-4); Hematocrit 46.8 % (42.0-52.0); Hemoglobin 15.5 g/dl (14.0-18.0); Imm Gran Abs Auto 0.02 X10*3/uL (0.00-0.03); Imm Gran Pct Auto 0.3 % (0.0-0.4); Lymphocytes Absolute Auto 1.7 X10*3/uL (1.2-4.9); Lymphocytes Percent Auto 23.9 % (20-40); Mean Corpuscular HGB Conc 33.1 g/dl (31.0-36.0); Mean Corpuscular Hemoglobin 29.2 pg (27.0-33.0); Mean Corpuscular Volume 88.3 fL (80.0-98.0); Monocytes Absolute Auto 0.5 X10*3/uL (0.1-1.2); Monocytes Percent Auto 7.3 % (2-11); Neutrophils Absolute Auto 4.6 x10*3/uL (2.0-8.3); Neutrophils Percent Auto 64.1 % (45-73); Platelet Count 264 X10*3/uL (160-400); Red Cell Distribution Width 13.1 % (11.0-16.0); White Blood Count 7.1 X10*3/uL (4.8-10.8)
[2022-03-08 14:33] LABS: Alanine Aminotransferase 8 U/L (0-40); Albumin Level 4.7 g/dL (3.5-5.0); Alkaline Phosphatase 111 U/L (39-117); Anion Gap 16 (12-20); Aspartate Amino Transferase 21 U/L (5-37); Bilirubin Total 0.6 mg/dL (0.0-1.0); Blood Urea Nitrogen 17 mg/dL (9-16); Calcium 9.5 mg/dL (8.4-10.2); Carbon Dioxide 24 mmol/L (22-29); Chloride 106 mmol/L (96-108); Estimated Glomerular Filt Rate > 60; Glucose Random 92 mg/dL (60-115); Lipase 13 U/L (8-78); Potassium 4.5 mmol/L (3.3-5.1); Sodium 141 mmol/L (135-145); Total Protein 7.2 g/dL (6.5-8.0)
== END 2022-03-08 12:56 | disposition home or self-care (01) ==
LOC: HO.LAB 12:55
PROVIDERS: PCP Internal Medicine; Visit Provider Internal Medicine
DX: R10.9 Unspecified abdominal pain (principal); K57.90 Diverticulosis of intestine, part unspecified, without perforation or abscess without bleeding
CPT/HCPCS: 36415; 80053; 83690; 85025; 86140

== ENCOUNTER 2022-04-27 14:47 | Outpatient (REF) | payer MEDICARE, MEDICAID, SELFPAY ==
--- NOTE | ~2022-04-27 | CT_ITS ---
EXAMINATION: CT ENTEROGRAPHY ABDOMEN AND PELVIS WITH CONTRAST CLINICAL INFORMATION: Abdominal pain. Diverticulosis. COMPARISON: Previous CT of the abdomen and pelvis September 2021 TECHNIQUE: Study performed with oral VoLumen (1350 mL) and 480 mL of water to distend the abdomen. The patient was injected with 85 mL Omnipaque 350 intravenous contrast which was administered without adverse effect. Coronal and sagittal reformatted images were obtained at the technologist's workstation. This CT examination was performed using dose optimization techniques as appropriate, variously including the following: *Automated exposure control *Adjustment of mA and/or kV according to patient size (this includes techniques or standardized protocols for targeted exams where dose is matched to indication/reason for exam; i.e. extremities or head) *Use of iterative reconstruction technique DLP: 489 mGy-cm FINDINGS: GASTROINTESTINAL FINDINGS: Stomach: Well-distended and normal in appearance. Small intestine: Satisfactorily distended and normal in appearance. Large intestine: Well-distended. Diverticulosis. No evidence of diverticulitis or colitis. Previously identified inflammatory changes around the cecum have resolved. Large amount of stool questionable for constipation. No perirectal changes demonstrated. The appendix is normal. Additional findings: No abnormal enhancement of the vasa recta or significant mesenteric or retroperitoneal lymphadenopathy is seen. No abdominal abscess or fistulous tract demonstrated. ABDOMINAL AND PELVIC CT FINDINGS: Liver, gallbladder, biliary tract: Normal Pancreas: Normal Spleen: Normal Adrenal glands and kidneys: Normal Ureters and bladder: Normal Lymphovascular structures: Normal Bones: Normal Lung bases: Normal CT/CT enterography IMPRESSION: Diverticulosis of the colon. Large amount of stool in the colon questionable for constipation.
== END 2022-04-27 14:48 | disposition home or self-care (01) ==
LOC: HO.US 14:47
PROVIDERS: Visit Provider Internal Medicine
DX: R10.0 Acute abdomen (principal); K57.92 Diverticulitis of intestine, part unspecified, without perforation or abscess without bleeding
CPT/HCPCS: 74177

== ENCOUNTER 2022-05-17 08:26 | Day surgery (SDC) | payer MEDICARE, SELFPAY ==
--- NOTE | 2022-05-16 13:36 | P.CONAN_ITS ---
Documented by User: Addie Jones NP 05/16/22 13:38 HPI - Anesthesia Eval Consult details Narrative: 46yo M for Colonoscopy Deaf, reads lips PMFSH Active Problems Active Problems: All Active Problems (Updated 10/01/21 @ 11:12 by Guillaume Onofre MD) Constipation (Acute) Diverticulitis of colon with perforation (Acute) Basal cell carcinoma (BCC) (Acute) Skin lesion of face (Acute) Deaf (Acute) Parkinsons disease (Acute) Past Medical History Medical History Basal cell carcinoma (BCC) Deaf Parkinsons disease Skin lesion of face Family History Family History Other Colon cancer Esophageal cancer Surgical History Surgical History History of excision of pilonidal cyst (~1994) Social History Social History Household Members: None Housing: Apartment Do you presently have visiting nurse or other home services: No Unable to assess alcohol history related to: Unknown Patient Tobacco Use Status: Never used Tobacco Are you DNR?: No Advance Directives: No Advance Directives Information Provided: Yes Recently lost weight without trying: No Nutrition Risks: No Nutritional Risk Poor oral hygiene: No service: No Current occupational status: disabled Meds Allergies Allergy/AdvReac Type Severity Reaction Status Date / Time No Known Allergies Allergy Verified 10/01/21 10:21 Home Medications Medication Instructions Recorded Confirmed Last Taken Type carbidopa ER 50 mg-levodopa 200 mg 1 tab PO BID 04/28/21 10/08/21 05/17/22 History tablet,extended release clonazepam 1 mg tablet 1 mg PO BEDTIME PRN Insomnia 04/28/21 10/08/21 09/15/21 History paroxetine HCl 40 mg tablet 40 mg PO DAILY 04/28/21 10/08/21 05/17/22 History pramipexole 0.25 mg tablet 0.25 mg PO TID 04/28/21 10/08/21 09/16/21 History baclofen 20 mg tablet 1 tab PO BEDTIME 09/16/21 10/08/21 09/15/21 History carbidopa 25 mg-levodopa 100 mg 1 tab PO TID 09/16/21 10/08/21 05/17/22 History tablet pramipexole 0.125 mg tablet 1 tab PO TID 09/16/21 10/08/21 05/17/22 History docusate sodium 100 mg capsule 100 mg PO BID 10/08/21 Unknown History Exam Exam Date and Time: May 16, 2022 1336 Pertinent Lab Results Pertinent Lab Results: Laboratory Tests 03/08/22 03/08/22 13:12 13:12 WBC 7.1 Hgb 15.5 Hct 46.8 Plt Count 264 Sodium 141 Potassium 4.5 Chloride 106 Carbon Dioxide 24 BUN 17 H Creatinine 0.86 Narrative Narrative: ECHO 12/2021 Conclusions: - Normal left ventricular size, thickness, systolic function, and wall motion. The visually estimated ejection fraction is between 55-60%.? Diastolic function is normal for age. ? - Normal right ventricular cavity size and systolic function.? ? Assessment and Plan Assessment Anesthesia Assessment: Chart Reviewed Documented by User: Glenda Guajardo MD 05/17/22 09:25 [facility] Past Medical History Medical History Basal cell carcinoma (BCC) Deaf Parkinsons disease Skin lesion of face Family History Family History Other Colon cancer Esophageal cancer Surgical History Surgical History History of excision of pilonidal cyst (~1994) History of Problems with Anesthesia: No Social History Social History Household Members: None Housing: Apartment Do you presently have visiting nurse or other home services: No Unable to assess alcohol history related to: Unknown Patient Tobacco Use Status: Never used Tobacco Are you DNR?: No Advance Directives: No Advance Directives Information Provided: Yes Recently lost weight without trying: No Nutrition Risks: No Nutritional Risk Poor oral hygiene: No service: No Current occupational status: disabled Meds Allergies Allergy/AdvReac Type Severity Reaction Status Date / Time No Known Allergies Allergy Verified 10/01/21 10:21 Home Medications Medication Instructions Recorded Confirmed Last Taken Type carbidopa ER 50 mg-levodopa 200 mg 1 tab PO BID 04/28/21 10/08/21 05/17/22 History tablet,extended release clonazepam 1 mg tablet 1 mg PO BEDTIME PRN Insomnia 04/28/21 10/08/21 09/15/21 History paroxetine HCl 40 mg tablet 40 mg PO DAILY 04/28/21 10/08/21 05/17/22 History pramipexole 0.25 mg tablet 0.25 mg PO TID 04/28/21 10/08/21 09/16/21 History baclofen 20 mg tablet 1 tab PO BEDTIME 09/16/21 10/08/21 09/15/21 History carbidopa 25 mg-levodopa 100 mg 1 tab PO TID 09/16/21 10/08/21 05/17/22 History tablet pramipexole 0.125 mg tablet 1 tab PO TID 09/16/21 10/08/21 05/17/22 History docusate sodium 100 mg capsule 100 mg PO BID 10/08/21 Unknown History Exam Airway Mallampati Class: III TM Dist: >3cm Neck ROM: Full Loose/Missing/Broken Teeth: No Heart: RRR Lungs: CTA Assessment and Plan Assessment Anesthesia Assessment: Anesthesia Plan Discussed Final Anesthetic Review History of Problems with Anesthesia: No NPO: Yes ASA Class: II Final Preanesthetic Review: Meds/Allgs Chart Reviewed, Consent Obtained/Reviewed and Anes Risks/Benef Reviewed Patient Risk: Low Procedure Risk: Low Anesthetic Plan Anesthetic Plan: MAC: Disposition: Standard PACU
[2022-05-17 08:02] VITALS: BMI 35.7
[2022-05-17 08:29] VITALS: BP 134/88; PULSE 110; RESP 18; TEMP 36.1; O2SAT 97
[2022-05-17] MEDS: Lactated Ringers 1,000 ML 100 ML IVCONT (08:56)
--- NOTE | 2022-05-17 09:04 | MHC.SHP ---
Pre-Procedural Eval Section A Date of Service: 05/17/22 Section B Chief Complaint: Diverticulitis of intestine, part unspecified, wit Details of Present Illness: see H&P Relevant Family History (Specify if Yes): No Relevant Social History: None Present Medications: see Short Stay Collaborative assessment Medical History: No relevant PMH History of Previous Operations: No relevant previous surgery Allergies: Allergies Allergy/AdvReac Type Severity Reaction Status Date / Time No Known Allergies Allergy Verified 10/01/21 10:21 Review of Systems Sugical H&P ROS: Negative: Constitution, Cardiovascular, Respiratory, Neurological, Psychiatric, Hem-Onc, Allergic/Immunologic, Gastrointestinal, Genitourinary, Musculoskeletal, Integumentary, Endocrine and Eyes/Ears/Nose/Throat Exam Surgical H&P Exam: Normal: HEENT, Normal: Heart, Normal: Lungs, Normal: Extremities, Normal: Abdomen, Normal: Skin and Normal: Neurological Plan Diagnosis/Plan: Unchanged I have reviewed the history and physical and performed a pertinent physical examination on my patient. No changes have occurred unless specified. Time Spent With Patient Time: Total time managing care of this patient today ____ minutes.
[2022-05-17 09:51] VITALS: BP 95/63; PULSE 93; RESP 16; TEMP 36.3; O2SAT 92
--- NOTE | 2022-05-17 09:57 | PM.OP ---
Brief Operative Note Date of Service: 05/17/22 Pre-op diagnosis: diverticulitis Post-op diagnosis: same Surgeon: Oracio Claros Anesthesia: MAC Was an Sewer System Supervisor used for this Procedure?: No Estimated blood loss (mL): 2 Pathology: other Condition: stable Disposition: PACU
[2022-05-17 10:06] VITALS: BP 102/64; PULSE 85; RESP 16; TEMP 36.9; O2SAT 94
[2022-05-17 10:19] VITALS: BP 125/83; PULSE 89; RESP 16; TEMP 37.3; O2SAT 94
--- NOTE | 2022-05-17 13:10 | OP_ITS ---
SURGEON: Oracio Claros MD INDICATIONS: Colon cancer screening and diverticulitis. PREOPERATIVE DIAGNOSIS: POSTOPERATIVE DIAGNOSIS: PROCEDURE PERFORMED: Colonoscopy to the terminal ileum with biopsy. ESTIMATED BLOOD LOSS: COMPLICATIONS: ANESTHESIA: Monitored anesthesia care. ASSISTANTS: SPECIMENS: DESCRIPTION OF PROCEDURE: Date: 05/17/22. History and physical performed. The risks and benefits of the procedure were explained to the patient. Informed consent was obtained. The patient was placed in the left lateral decubitus position. A digital rectal exam was performed and was found to be normal. The Olympus pediatric video colonoscope was introduced into the rectum and advanced to the cecum without difficulty. The cecum was identified by a transillumination, palpation, and identification of the ileocecal valve. Examination was performed. The scope was removed. He tolerated the procedure well and was taken to the recovery area in stable condition. Abdominal wall pressure was used to assist in advancement of the scope. FINDINGS: The terminal ileum was examined and appeared normal. The visualized colonic mucosa was normal. There was a single polyp measuring less than 5 mm at 90 cm from the anal verge. This was removed with a biopsy forceps. There was slaughter diverticulosis without any evidence of diverticulitis. There was a moderate amount of liquid stool and formed stool scattered throughout the colon, which was washed and suctioned as best possible. This limited the examination for detection of small polyps, mainly in the sigmoid and descending colon. Retroflexed examination showed moderate-sized internal hemorrhoids. IMPRESSION: 1. Colon polyp. 2. Diverticulosis. 3. Internal hemorrhoids. RECOMMENDATION: Follow up the biopsy results. MD SHEYLA Cox/CRICKET / [id number] MTDD
== END 2022-05-17 11:00 | disposition home or self-care (01) ==
PROVIDERS: PCP Internal Medicine; Visit Provider Internal Medicine Gastroenterology
PROC: 0DJD8ZZ Inspection of Lower Intestinal Tract, Via Natural or Artificial Opening Endoscopic (ICD-10-PCS; CPT 45378; principal; 2022-05-17 09:40)
DX: Z12.11 Encounter for screening for malignant neoplasm of colon (principal); Z83.71 Family history of colonic polyps; Z87.19 Personal history of other diseases of the digestive system; K63.5 Polyp of colon; K57.30 Diverticulosis of large intestine without perforation or abscess without bleeding; K64.8 Other hemorrhoids; G20 Parkinson's disease; G93.49 Other encephalopathy; F41.1 Generalized anxiety disorder; H91.90 Unspecified hearing loss, unspecified ear; R26.9 Unspecified abnormalities of gait and mobility; M62.838 Other muscle spasm; Z79.899 Other long term (current) drug therapy
CPT/HCPCS: 45380; 88305

== ENCOUNTER 2022-09-16 10:49 | Emergency (ER) | payer MEDICARE, SELFPAY ==
[2022-09-16 11:07] VITALS: BP 121/80; PULSE 105; RESP 20; TEMP 38.1; O2SAT 94; BMI 30.5
--- NOTE | 2022-09-16 11:09 | ED.GENADULT ---
HPI - General Adult General Chief complaint: Dental/Oral <HANNAH Huynh - Last Filed: 09/16/22 12:53> Stated complaint: ? Dental Abscess <HANNAH Huynh - Last Filed: 09/16/22 12:53> Time Seen by Provider: 09/16/22 11:19 <HANNAH Huynh - Last Filed: 09/16/22 12:53> History of Present Illness HPI narrative: Patient is deaf and communicates easily with a writing pad and reads lips He complains of 7 days of worsening dental infection, now he has a fever, he cannot open his mouth easily, there is swelling on the bottom of his mouth, he has no difficulty breathing no difficulty swallowing at this time Denies chills denies vomiting <HANNAH Feng - Last Filed: 09/16/22 14:13> Related Data Home medications: Home Medications Medication Instructions Recorded Confirmed carbidopa ER 50 mg-levodopa 200 mg 1 tab PO BID 04/28/21 10/08/21 tablet,extended release clonazepam 1 mg tablet 1 mg PO BEDTIME PRN Insomnia 04/28/21 10/08/21 paroxetine HCl 40 mg tablet 40 mg PO DAILY 04/28/21 10/08/21 pramipexole 0.25 mg tablet 0.25 mg PO TID 04/28/21 10/08/21 baclofen 20 mg tablet 1 tab PO BEDTIME 09/16/21 10/08/21 carbidopa 25 mg-levodopa 100 mg 1 tab PO TID 09/16/21 10/08/21 tablet pramipexole 0.125 mg tablet 1 tab PO TID 09/16/21 10/08/21 docusate sodium 100 mg capsule 100 mg PO BID 10/08/21 Previous Rx's Medication Instructions Recorded oxycodone-acetaminophen 5 mg-325 1 tab PO Q6H PRN pain (scale score 09/19/21 mg tablet (Endocet) 7-10) #14 tabs <HANNAH Huynh - Last Filed: 09/16/22 12:53> Allergies/adverse reactions: Allergies Allergy/AdvReac Type Severity Reaction Status Date / Time No Known Allergies Allergy Verified 10/01/21 10:21 <HANNAH Huynh - Last Filed: 09/16/22 12:53> PMFSH Past Medical History PMFSH Narrative: Patient denies any allergy to medication <HANNAH Feng - Last Filed: 09/16/22 14:13> Source: nursing notes reviewed <HANNAH Feng - Last Filed: 09/16/22 14:13> Medical History: Medical History Basal cell carcinoma (BCC) Deaf Parkinsons disease Skin lesion of face <HANNAH Huynh - Last Filed: 09/16/22 12:53> Surgical History: Surgical History History of excision of pilonidal cyst (~1994) <HANNAH Huynh - Last Filed: 09/16/22 12:53> Family History Family History: Family History Other Colon cancer Esophageal cancer <HANNAH Huynh - Last Filed: 09/16/22 12:53> Social History Social History: Social History Household Members: None Housing: Apartment Do you presently have visiting nurse or other home services: No Unable to assess alcohol history related to: Unknown Patient Tobacco Use Status: Never used Tobacco Advance Directives: Yes Advance Directives on File: Yes Advance Directives Date on File: 09/21/21 service: No Current occupational status: disabled <HANNAH Huynh - Last Filed: 09/16/22 12:53> Physical Exam ED Vital Signs: Vital Signs - 24 hr 09/16/22 11:07 09/16/22 14:04 Temperature 100.5 F H Pulse Rate 105 H 130 H Respiratory Rate 20 16 Blood Pressure 121/80 Pulse Oximetry 94 95 Oxygen Delivery Method Room Air BMI result Body Mass Index 30.5 <HANNAH Huynh - Last Filed: 09/16/22 12:53> Vital Signs - 24 hr 09/16/22 11:07 09/16/22 14:04 Temperature 100.5 F H Pulse Rate 105 H 130 H Respiratory Rate 20 16 Blood Pressure 121/80 Pulse Oximetry 94 95 Oxygen Delivery Method Room Air BMI result Body Mass Index 30.5 <HANNAH Feng - Last Filed: 09/16/22 14:13> General appearance is no acute distress The sinuses are nontender The face shows swelling in the submandibular area, significant swelling with some redness The patient cannot open his mouth normally and has trismus but no drooling There is no impairment of breathing or swallowing at this time, there was no obvious fluctuant abscess along the gum line Mucous membranes were moist Neck is supple , no stridor The chest is clear to auscultation bilateral full symmetric equal breath sounds Abdomen soft nontender Extremities for range of motion x4 <HANNAH Feng - Last Filed: 09/16/22 14:13> Course Course Course Narrative: RME performed by Elana Edgar PA-C. Patient is a 47 year old assigned male at presenting to the emergency department with dental pain and swelling. Patient is febrile and tachycardic in triage. Labs ordered. Patient placed in [facility]. <HANNAH Huynh Last Filed: 09/16/22 12:53> RME performed by Elana Edgar PA-C. Patient is a 47 year old assigned male at presenting to the emergency department with dental pain and swelling. Patient is febrile and tachycardic in triage. Labs ordered. Patient placed in [facility]. Patient with a 7 day dental infection that has progressed with swelling in submandibular area associated with inability to open his mouth normally, fever, tachycardia Patient was treated in the ER with antibiotic clindamycin, labs were drawn he was given a L of IV fluids Because of location of swelling, inability to open mouth, trismus the case was discussed with [facility] transfer Line and was accepted by Dr. Bauman as a transfer to the emergency department Patient remained tachycardic throughout visit at rate of 130, condition remained unchanged throughout visit, breathing and swallowing easily Hematology showed a white count 11.5, chemistry showed lactate of 2.4, CRP was 29, ESR was 70 to Patient remained stable throughout ER visit, breathing easily no drooling <HANNAH Feng Last Filed: 09/16/22 14:13> Medications Administered Discontinued Medications Generic Name Dose Route Start Last Admin Trade Name Freq PRN Reason Stop Dose Admin Clindamycin Phosphate 600 mg in 50 mls @ 100 mls/hr 09/16/22 11:44 09/16/22 13:45 Cleocin IV 09/16/22 12:13 Infused ONCE ONE Infusion Sodium Chloride 1,000 mls @ 999 mls/hr 09/16/22 12:45 09/16/22 14:06 Ns IVCONT 09/16/22 13:45 Infused .Q1H1M SAI Infusion Morphine Sulfate 4 mg 09/16/22 13:02 09/16/22 13:11 Morphine Sulfate 4 Mg/Ml Cartridge IVPUSH 09/16/22 13:03 4 mg ONCE ONE Administration Protocol <HANNAH Huynh - Last Filed: 09/16/22 12:53> Medications Administered Discontinued Medications Generic Name Dose Route Start Last Admin Trade Name Ankitq PRN Reason Stop Dose Admin Clindamycin Phosphate 600 mg in 50 mls @ 100 mls/hr 09/16/22 11:44 09/16/22 13:45 Cleocin IV 09/16/22 12:13 Infused ONCE ONE Infusion Sodium Chloride 1,000 mls @ 999 mls/hr 09/16/22 12:45 09/16/22 14:06 Ns IVCONT 09/16/22 13:45 Infused .Q1H1M SAI Infusion Morphine Sulfate 4 mg 09/16/22 13:02 09/16/22 13:11 Morphine Sulfate 4 Mg/Ml Cartridge IVPUSH 09/16/22 13:03 4 mg ONCE ONE Administration Protocol <HANNAH Feng - Last Filed: 09/16/22 14:13> Medical Decision Making Lab Data MDM Lab Attestation statement: I reviewed the patient's lab results. <HANNAH Feng - Last Filed: 09/16/22 14:13> Result Diagrams: 09/16/22 11:45 09/16/22 11:45 <HANNAH Huynh - Last Filed: 09/16/22 12:53> Labs: Lab Results 09/16/22 09/16/22 09/16/22 Range/Units 11:45 11:45 13:32 WBC 11.5 H (4.8-10.8) X10*3/uL RBC 4.27 L (4.60-5.80) X10*6/uL Hgb 12.8 L (14.0-18.0) g/dl Hct 37.9 L (42.0-52.0) % MCV 88.8 (80.0-98.0) fL MCH 30.0 (27.0-33.0) pg MCHC 33.8 (31.0-36.0) g/dl RDW 12.4 (11.0-16.0) % Plt Count 261 (160-400) X10*3/uL MPV 8.4 L (9.4-12.4) fL Immature Gran % (Auto) 0.3 (0.0-0.4) % Neut % (Auto) 79.0 H (45-73) % Lymph % (Auto) 8.3 L (20-40) % Charles % (Auto) 11.5 H (2-11) % Eos % (Auto) 0.5 (0-4) % Baso % (Auto) 0.4 (0-2) % Lymph # (Auto) 1.0 L (1.2-4.9) X10*3/uL Charles # (Auto) 1.3 H (0.1-1.2) X10*3/uL Eos # (Auto) 0.1 (0.0-0.4) X10*3/uL Baso # (Auto) 0.1 (0.0-0.2) X10*3/uL Abs Immat Gran (auto) 0.04 H (0.00-0.03) X10*3/uL Absolute Neuts (auto) 9.1 H (2.0-8.3) x10*3/uL Absolute Nucleated RBC 0.000 (0.0-0.012) X10*3/uL Nucleated RBC % (auto) 0.0 (0.0-0.2) /100WBC ESR 72 H (0-15) MM/HR Sodium (135-145) mmol/L Potassium (3.3-5.1) mmol/L Chloride (96-108) mmol/L Carbon Dioxide (22-29) mmol/L Anion Gap (12-20) BUN (9-16) mg/dL Creatinine (0.5-1.4) mg/dL Estim Creat Clear Calc Estimated GFR Random Glucose (60-115) mg/dL Lactic Acid 2.4 H* (0.5-2.0) mmol/L Calcium (8.4-10.2) mg/dL Magnesium (1.6-2.6) mg/dL Total Bilirubin (0.0-1.0) mg/dL AST (5-37) U/L ALT (0-40) U/L Alkaline Phosphatase (39-117) U/L C-Reactive Protein (< or = 0.50) mg/dL Total Protein (6.5-8.0) g/dL Albumin (3.5-5.0) g/dL 09/16/22 Range/Units 13:32 WBC (4.8-10.8) X10*3/uL RBC (4.60-5.80) X10*6/uL Hgb (14.0-18.0) g/dl Hct (42.0-52.0) % MCV (80.0-98.0) fL MCH (27.0-33.0) pg MCHC (31.0-36.0) g/dl RDW (11.0-16.0) % Plt Count (160-400) X10*3/uL MPV (9.4-12.4) fL Immature Gran % (Auto) (0.0-0.4) % Neut % (Auto) (45-73) % Lymph % (Auto) (20-40) % Charles % (Auto) (2-11) % Eos % (Auto) (0-4) % Baso % (Auto) (0-2) % Lymph # (Auto) (1.2-4.9) X10*3/uL Charles # (Auto) (0.1-1.2) X10*3/uL Eos # (Auto) (0.0-0.4) X10*3/uL Baso # (Auto) (0.0-0.2) X10*3/uL Abs Immat Gran (auto) (0.00-0.03) X10*3/uL Absolute Neuts (auto) (2.0-8.3) x10*3/uL Absolute Nucleated RBC (0.0-0.012) X10*3/uL Nucleated RBC % (auto) (0.0-0.2) /100WBC ESR (0-15) MM/HR Sodium 140 (135-145) mmol/L Potassium 3.6 (3.3-5.1) mmol/L Chloride 102 (96-108) mmol/L Carbon Dioxide 26 (22-29) mmol/L Anion Gap 16 (12-20) BUN 14 (9-16) mg/dL Creatinine 0.81 (0.5-1.4) mg/dL Estim Creat Clear Calc 118.3 Estimated GFR > 60 Random Glucose 105 (60-115) mg/dL Lactic Acid (0.5-2.0) mmol/L Calcium 8.5 D (8.4-10.2) mg/dL Magnesium 1.8 (1.6-2.6) mg/dL Total Bilirubin 0.8 (0.0-1.0) mg/dL AST 11 (5-37) U/L ALT < 5 (0-40) U/L Alkaline Phosphatase 101 (39-117) U/L C-Reactive Protein 29.42 H (< or = 0.50) mg/dL Total Protein 6.2 L (6.5-8.0) g/dL Albumin 3.7 (3.5-5.0) g/dL <HANNAH Huynh - Last Filed: 09/16/22 12:53> Lab Results 09/16/22 09/16/22 09/16/22 Range/Units 11:45 11:45 13:32 WBC 11.5 H (4.8-10.8) X10*3/uL RBC 4.27 L (4.60-5.80) X10*6/uL Hgb 12.8 L (14.0-18.0) g/dl Hct 37.9 L (42.0-52.0) % MCV 88.8 (80.0-98.0) fL MCH 30.0 (27.0-33.0) pg MCHC 33.8 (31.0-36.0) g/dl RDW 12.4 (11.0-16.0) % Plt Count 261 (160-400) X10*3/uL MPV 8.4 L (9.4-12.4) fL Immature Gran % (Auto) 0.3 (0.0-0.4) % Neut % (Auto) 79.0 H (45-73) % Lymph % (Auto) 8.3 L (20-40) % Charles % (Auto) 11.5 H (2-11) % Eos % (Auto) 0.5 (0-4) % Baso % (Auto) 0.4 (0-2) % Lymph # (Auto) 1.0 L (1.2-4.9) X10*3/uL Charles # (Auto) 1.3 H (0.1-1.2) X10*3/uL Eos # (Auto) 0.1 (0.0-0.4) X10*3/uL Baso # (Auto) 0.1 (0.0-0.2) X10*3/uL Abs Immat Gran (auto) 0.04 H (0.00-0.03) X10*3/uL Absolute Neuts (auto) 9.1 H (2.0-8.3) x10*3/uL Absolute Nucleated RBC 0.000 (0.0-0.012) X10*3/uL Nucleated RBC % (auto) 0.0 (0.0-0.2) /100WBC ESR 72 H (0-15) MM/HR Sodium (135-145) mmol/L Potassium (3.3-5.1) mmol/L Chloride (96-108) mmol/L Carbon Dioxide (22-29) mmol/L Anion Gap (12-20) BUN (9-16) mg/dL Creatinine (0.5-1.4) mg/dL Estim Creat Clear Calc Estimated GFR Random Glucose (60-115) mg/dL Lactic Acid 2.4 H* (0.5-2.0) mmol/L Calcium (8.4-10.2) mg/dL Magnesium (1.6-2.6) mg/dL Total Bilirubin (0.0-1.0) mg/dL AST (5-37) U/L ALT (0-40) U/L Alkaline Phosphatase (39-117) U/L C-Reactive Protein (< or = 0.50) mg/dL Total Protein (6.5-8.0) g/dL Albumin (3.5-5.0) g/dL 09/16/22 Range/Units 13:32 WBC (4.8-10.8) X10*3/uL RBC (4.60-5.80) X10*6/uL Hgb (14.0-18.0) g/dl Hct (42.0-52.0) % MCV (80.0-98.0) fL MCH (27.0-33.0) pg MCHC (31.0-36.0) g/dl RDW (11.0-16.0) % Plt Count (160-400) X10*3/uL MPV (9.4-12.4) fL Immature Gran % (Auto) (0.0-0.4) % Neut % (Auto) (45-73) % Lymph % (Auto) (20-40) % Charles % (Auto) (2-11) % Eos % (Auto) (0-4) % Baso % (Auto) (0-2) % Lymph # (Auto) (1.2-4.9) X10*3/uL Charles # (Auto) (0.1-1.2) X10*3/uL Eos # (Auto) (0.0-0.4) X10*3/uL Baso # (Auto) (0.0-0.2) X10*3/uL Abs Immat Gran (auto) (0.00-0.03) X10*3/uL Absolute Neuts (auto) (2.0-8.3) x10*3/uL Absolute Nucleated RBC (0.0-0.012) X10*3/uL Nucleated RBC % (auto) (0.0-0.2) /100WBC ESR (0-15) MM/HR Sodium 140 (135-145) mmol/L Potassium 3.6 (3.3-5.1) mmol/L Chloride 102 (96-108) mmol/L Carbon Dioxide 26 (22-29) mmol/L Anion Gap 16 (12-20) BUN 14 (9-16) mg/dL Creatinine 0.81 (0.5-1.4) mg/dL Estim Creat Clear Calc 118.3 Estimated GFR > 60 Random Glucose 105 (60-115) mg/dL Lactic Acid (0.5-2.0) mmol/L Calcium 8.5 D (8.4-10.2) mg/dL Magnesium 1.8 (1.6-2.6) mg/dL Total Bilirubin 0.8 (0.0-1.0) mg/dL AST 11 (5-37) U/L ALT < 5 (0-40) U/L Alkaline Phosphatase 101 (39-117) U/L C-Reactive Protein 29.42 H (< or = 0.50) mg/dL Total Protein 6.2 L (6.5-8.0) g/dL Albumin 3.7 (3.5-5.0) g/dL <HANNAH Feng - Last Filed: 09/16/22 14:13> Discharge Plan Discharge Clinical Impression: Dental infection, Trismus <HANNAH uHynh - Last Filed: 09/16/22 12:53> Patient Disposition: [facility] <HANNAH Huynh - Last Filed: 09/16/22 12:53> Transfer Details: You are being transferred to [facility] Emergency Department, excepting doctor is Dr. Bauman Transfer is because [facility] has no ENT or Oral surgery available for this dental infection with trismus <HANNAH Huynh - Last Filed: 09/16/22 12:53> You are being transferred to [facility] Emergency Department, excepting doctor is Dr. Bauman Transfer is because [facility] has no ENT or Oral surgery available for this dental infection with trismus <HANNAH Feng - Last Filed: 09/16/22 14:13> Additional Instructions: Your being transferred to [facility] for further care of her dental infection They will decide if you need surgical treatment and they will get scans there Excepting doctor was Dr. Bauman <HANNAH Huynh - Last Filed: 09/16/22 12:53> Prescriptions: No Action baclofen 20 mg tablet 1 tab PO BEDTIME carbidopa-levodopa 25-100 mg tablet 1 tab PO TID pramipexole 0.125 mg tablet 1 tab PO TID oxycodone-acetaminophen [Endocet] 5-325 mg tablet 1 tab PO Q6H PRN (Reason: pain (scale score 7-10)) Qty: 14 0RF paroxetine HCl 40 mg tablet 40 mg PO DAILY carbidopa-levodopa 50-200 mg tablet extended release 1 tab PO BID clonazepam 1 mg tablet 1 mg PO BEDTIME PRN (Reason: Insomnia) pramipexole 0.25 mg tablet 0.25 mg PO TID docusate sodium 100 mg capsule 100 mg PO BID <HANNAH Huynh - Last Filed: 09/16/22 12:53> Interventions: Acute Care Transfer Worksheet (ED) Last Done: 09/16/22 14:07 <HANNAH Huynh - Last Filed: 09/16/22 12:53> Discharge Date/Time: 09/16/22 14:08 <HANNAH Huynh - Last Filed: 09/16/22 12:53>
[2022-09-16 12:38] LABS: Erythrocyte Sedimentation Rate 72 MM/HR (0-15)
[2022-09-16] MEDS: Clindamycin Phosphate/D5W 600 MG/50 ML PIGGYBACK 100 MG IV (12:48)
[2022-09-16] MEDS: 0.9 % Sodium Chloride 1,000 ML 999 ML IVCONT (12:48)
[2022-09-16] MEDS: Morphine Sulfate 4 MG/ML CARTRIDGE IVPUSH (13:11)
[2022-09-16 13:37] LABS: Basophils Absolute Auto 0.1 X10*3/uL (0.0-0.2); Basophils Percent Auto 0.4 % (0-2); Eosinophils Absolute Auto 0.1 X10*3/uL (0.0-0.4); Eosinophils Percent Auto 0.5 % (0-4); Hematocrit 37.9 % (42.0-52.0); Hemoglobin 12.8 g/dl (14.0-18.0); Imm Gran Abs Auto 0.04 X10*3/uL (0.00-0.03); Imm Gran Pct Auto 0.3 % (0.0-0.4); Lymphocytes Percent Auto 8.3 % (20-40); Mean Corpuscular HGB Conc 33.8 g/dl (31.0-36.0); Mean Corpuscular Volume 88.8 fL (80.0-98.0); Mean Platelet Volume 8.4 fL (9.4-12.4); Monocytes Absolute Auto 1.3 X10*3/uL (0.1-1.2); Monocytes Percent Auto 11.5 % (2-11); Neutrophils Absolute Auto 9.1 x10*3/uL (2.0-8.3); Platelet Count 261 X10*3/uL (160-400); Red Blood Count 4.27 X10*6/uL (4.60-5.80); Red Cell Distribution Width 12.4 % (11.0-16.0); White Blood Count 11.5 X10*3/uL (4.8-10.8)
[2022-09-16 13:41] LABS: MANUAL DIFF FLAG NO
[2022-09-16 13:55] LABS: Reflex Lactate? Lactic Acid Added
[2022-09-16 14:02] LABS: Alanine Aminotransferase < 5 U/L (0-40); Albumin Level 3.7 g/dL (3.5-5.0); Alkaline Phosphatase 101 U/L (39-117); Anion Gap 16 (12-20); Aspartate Amino Transferase 11 U/L (5-37); Bilirubin Total 0.8 mg/dL (0.0-1.0); Blood Urea Nitrogen 14 mg/dL (9-16); C Reactive Protein 29.42 mg/dL (< or = 0.50); Calcium 8.5 mg/dL (8.4-10.2); Carbon Dioxide 26 mmol/L (22-29); Chloride 102 mmol/L (96-108); Creatinine Clr Calc Pharmacy 118.3; Estimated Glomerular Filt Rate > 60; Glucose Random 105 mg/dL (60-115); Magnesium 1.8 mg/dL (1.6-2.6); Potassium 3.6 mmol/L (3.3-5.1); Sodium 140 mmol/L (135-145); Total Protein 6.2 g/dL (6.5-8.0)
[2022-09-16 14:04] VITALS: PULSE 130; RESP 16; O2SAT 95
[2022-09-16 15:29] LABS: Lactic Acid 2.4 mmol/L (0.5-2.0)
== END 2022-09-16 14:08 | disposition short-term general hospital (02) ==
PROVIDERS: Physician Assistant Medical; Emergency Provider Emergency Medicine; PCP Internal Medicine
DX: K04.7 Periapical abscess without sinus (principal); R25.2 Cramp and spasm; R50.9 Fever, unspecified; R00.0 Tachycardia, unspecified; C44.91 Basal cell carcinoma of skin, unspecified; G20 Parkinson's disease; H91.93 Unspecified hearing loss, bilateral
CPT/HCPCS: 36415; 80053; 83605; 83735; 85025; 85652; 86140; 87040; 96361; 96374; 96375; 99285; J2270

== ENCOUNTER 2024-02-21 10:58 | Outpatient (REF) | payer MEDICARE, SELFPAY ==
[2024-02-21 13:08] LABS: MANUAL DIFF FLAG NO
[2024-02-21 13:28] LABS: Basophils Absolute Auto 0.1 X10*3/uL (0.0-0.2); Eosinophils Absolute Auto 0.3 X10*3/uL (0.0-0.4); Eosinophils Percent Auto 4.5 % (0-4); Hematocrit 43.4 % (42.0-52.0); Hemoglobin 14.5 g/dl (14.0-18.0); Imm Gran Abs Auto 0.02 X10*3/uL (0.00-0.03); Imm Gran Pct Auto 0.3 % (0.0-0.4); Lymphocytes Absolute Auto 1.7 X10*3/uL (1.2-4.9); Lymphocytes Percent Auto 23.5 % (20-40); Mean Corpuscular HGB Conc 33.4 g/dl (31.0-36.0); Mean Corpuscular Hemoglobin 30.7 pg (27.0-33.0); Mean Corpuscular Volume 91.9 fL (80.0-98.0); Mean Platelet Volume 9.1 fL (9.4-12.4); Monocytes Absolute Auto 0.5 X10*3/uL (0.1-1.2); Monocytes Percent Auto 7.5 % (2-11); Neutrophils Absolute Auto 4.5 x10*3/uL (2.0-8.3); Neutrophils Percent Auto 63.2 % (45-73); Platelet Count 271 X10*3/uL (160-400); Red Blood Count 4.72 X10*6/uL (4.60-5.80); White Blood Count 7.1 X10*3/uL (4.8-10.8)
[2024-02-21 13:54] LABS: Alanine Aminotransferase 9 U/L (0-40); Albumin Level 4.4 g/dL (3.5-5.0); Alkaline Phosphatase 114 U/L (39-117); Anion Gap 13 (12-20); Aspartate Amino Transferase 19 U/L (5-37); Bilirubin Total 0.6 mg/dL (0.0-1.0); Blood Urea Nitrogen 16 mg/dL (9-16); C Reactive Protein 0.69 mg/dL (< or = 0.50); Calcium 9.5 mg/dL (8.4-10.2); Carbon Dioxide 26 mmol/L (22-29); Chloride 107 mmol/L (96-108); Cholesterol 188 mg/dL (<200); Estimated Glomerular Filt Rate > 60; Glucose Fasting 95 mg/dL (60-99); HDL Cholesterol 54 mg/dL (>40); LDL Cholesterol Calculated 114 mg/dL (<100); Potassium 3.8 mmol/L (3.3-5.1); Sodium 142 mmol/L (135-145); Total Protein 7.2 g/dL (6.5-8.0); Triglycerides 102 mg/dL (<150)
[2024-02-21 14:22] LABS: Vitamin B12 384 pg/mL (200-900)
== END 2024-02-21 10:59 | disposition home or self-care (01) ==
LOC: HO.10HDL 10:58
PROVIDERS: Visit Provider Internal Medicine
DX: Z13.6 Encounter for screening for cardiovascular disorders (principal); G20.C Parkinsonism, unspecified; K57.90 Diverticulosis of intestine, part unspecified, without perforation or abscess without bleeding; G62.9 Polyneuropathy, unspecified; Z86.010 Personal history of colon polyps
CPT/HCPCS: 36415; 80053; 80061; 82550; 82607; 85025; 86140

== ENCOUNTER 2025-03-12 12:51 | Outpatient (AMB) | payer MEDICARE, MEDICAID, SELFPAY ==
--- NOTE | 2025-03-12 12:52 | A.OFFPC_ITS ---
Vital Signs 03/12/25 13:05 Height 5 ft 7 in Weight 205 lb BMI 32.1 BP 116/66 Blood Pressure Location Lt brachial Position Sitting Respiration 18 Pulse 120 H Pulse Source Pulse Oximeter Temp 97.9 F Temp Source Temporal Artery Scan Pulse Oximetry (%) 95 Oxygen Delivery Method Room Air Intake Visit Reasons: Medication f/u-Croke Supervisor [employer] Required: No Accompanied by: mother-Sahara Allergies No Known Allergies Allergy (Verified 03/12/25 12:53) Medication List - Last Reconciled 03/12/25 by Arpit Dawson MD baclofen 10 mg PO BID PRN carbidopa-levodopa 25-100 mg 2 tabs orally 5 times per day; carbidopa-levodopa 50-200 mg ER 1 tab PO TID clonazepam 1 mg PO BEDTIME PRN paroxetine HCl 40 mg PO DAILY Tobacco use date assessed: 03/12/25 Dental Screening Dental Screen Date: 03/12/25 Did you have a dental visit in the last 12 months?: Yes Did you have a dental problem in the last 6 months where you did not have access to dental care?: No Was dental information given to patient?: Patient has dentist HPI HPI Comments History of Present Illness Details The patient is a 49-year-old male presenting with concerns regarding medications for anxiety, management of Parkinson's Disease, and persistent tachycardia. The patient has a history of deafness from age [age] due to meningitis. He was diagnosed with Parkinson's Disease, which manifests as rigidity, freezing episodes, and improvement with medication over the course of the day. The patient reports a history of an elevated heart rate, noted to be in the 130s, that has persisted for years and was confirmed with EKGs. The patient has a history of significant surgical events including resection for impacted wisdom tooth which led to sepsis, and multiple surgeries for pilonidal cysts during adolescence. Chronic anxiety and depression have been managed with clonazepam and paroxetine for several years. The patient's heart rate remains elevated; factors contributing to this may include weight and persistent anxiety. He reports successful bowel and bladder function, noting some bloating. The patient's activity restrictions and gradual physical decline have been exacerbated by a recent episode of shingles. 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2 - Parkinson's Disease - Anxiety - Depression - Seasonal allergies Surgical History: - Emergency surgery for septic impacted wisdom tooth - Three pilonidal cyst surgeries Medications: - Baclofen 10 mg, three times daily as n eeded for muscle spasms - Carbidopa/Levodopa extended release, t hree times daily for Parkinson's Disease - Paroxetine for anxiety and depression - Clonazepam 1 mg daily for anxiety, jhonatan eduled for tapering Family History: - Colon cancer in the patient's uncle an d two brothers Diagnostic Results: - Electrocardiograms (EKGs) indicating f ast heart rate; no structural abnormalities identified Social History: - Lives independently with no requiremen t for assistance - Denies tobacco, alcohol, and illicit d rug use - Activity restricted due to Parkinson's Disease; past history of being more active COUNT INCLUDES [facility] Medical History (Updated 03/12/25 @ 13:49 by Arpit Dawson MD) Tachycardia Generalized anxiety disorder Basal cell carcinoma (BCC) Skin lesion of face Deaf Parkinsons disease Surgical History (Updated 12/04/24 @ 16:34 by Ita Martinez) History of colonoscopy (~05/17/22) History of excision of pilonidal cyst (~1994) Family History Other Colon cancer Esophageal cancer Social History Household Members: None Housing: Apartment Do you presently have visiting nurse or other home services: No Patient Tobacco Use Status: Never used Tobacco e-Cigarette/Vaping Use: Never Used Advance Directives Date on File: 09/21/21 service: No Current occupational status: disabled Cognitive needs: No Hearing needs: Yes Vision needs: No Questionnaire PHQ-9 Over the last 2 weeks, how often have you been bothered by any of the following problems? 1. Little interest or pleasure in doing things: not at all 2. Feeling down, depressed, or hopeless: not at all 3. Trouble falling or staying asleep, or sleeping too much: not at all 4. Feeling tired or having little energy: not at all 5. Poor appetite or overeating: not at all 6. Feeling bad about yourself - or that you are a failure or have let yourself or your family down: not at all 7. Trouble concentrating on things, such as reading the newspaper or watching television: not at all 8. Moving or speaking so slowly that other people could have noticed. Or the opposite - being so fidgety or restless that you have been moving around a lot more than usual: not at all 9. Thoughts that you would be better off or of hurting yourself in some way: not at all Total score: 0 Depression Screening Interpretation: Negative Depression Screening Done: Yes 15738 - PHQ-9 Billing: Yes Source: Developed by Drs. Mina Sinha, Kathy Rosas, Servando Marin and colleagues, with an educational pola from [employer]. Thrive Questionnaire Date Thrive assessed: 03/12/25 I am a: Patient What is your living situation today?: I have a steady place to live Within the past 12 months, did the food you bought not last and you didn't have the money to get more?: Never true Within the past 12 months, did you worry whether your food would run out before you got money to buy more?: Never true Do you have trouble paying for medicines?: No Do you have trouble getting transportation to medical appointments?: No Do you have trouble paying your heating and electricity bill?: No Do you have trouble taking care of your child, family member or friend?: No Do you have trouble with day-to-day activities such as bathing, preparing meals, shopping, managing finances, etc.?: No Are you currently unemployed and looking for a job?: No Are you interested in more education?: No THRIVE Score: 0 AUDIT C Alcohol Use Questionnaire (AUDIT-C) 1. How often do you have a drink containing alcohol?: Never 3. How often do you have six or more drinks on one occasion?: Never Total Score: 0 Score Reviewed/Action Taken: Yes DWIGHT-7 AMB Questionnaire DWIGHT-7 Date DWIGHT - 7 assessed: 03/12/25 Feeling nervous, anxious, or on edge: 1 = Several days Not being able to stop or control worryin = Several days Worrying too much about different things: 1 = Several days Trouble relaxin = Several days Being so restless that it is hard to sit still: 1 = Several days Becoming easily annoyed or irritable: 0 = Not at all Feeling afraid as if something awful might happen: 0 = Not at all Total DWIGHT-7 score (0-4 normal; 5-9 mild; 10-14 moderate; 15-21 severe): 5 Source: Developed by Drs. Mina Sinha, Kathy Rosas, Servando Marin and colleagues, with an educational pola from [employer]. DWIGHT-7 Assessment Billing DWIGHT-7 Assessment Tool: DWIGHT-7 Assessment 64392 Review of Systems Const Details: - Neurological: Reports freezing episodes, movement rigidity - Cardiovascular: Reports persistently elevated heart rate - Gastrointestinal: Denies constipation or diarrhea, reports normal bowel habits - Psychiatric: Anxiety, depression All systems reviewed & are unremarkable except as reviewed in HPI and above Physical exam (Primary Care) Vital Signs: Last Vital Signs Temp 97.9 F 03/12/25 13:05 Pulse 120 H 03/12/25 13:05 Resp 18 03/12/25 13:05 BP 116/66 03/12/25 13:05 Pulse Ox 95 03/12/25 13:05 Oxygen Delivery Method Room Air 03/12/25 13:05 BMI result Body Mass Index 32.1 Tobacco/Smoking Status: Tobacco use Status Tobacco use date assessed 03/12/25 03/12/25 12:53 Patient Tobacco Use Status Never used Tobacco 03/12/25 12:53 e-Cigarette/Vaping Use Never Used 03/12/25 13:08 Depression Screening Interpretation: Negative Const Other: General: +Alert and oriented, Well nourished, No acute distress. Eye: Pupils are equal, round and reactive to light, Intact accommodation, Extraocular movements are intact, Normal conjunctiva, Vision unchanged. HENT: Normocephalic, Atraumatic, Tympanic membranes are clear, Hearing impaired, Oral mucosa is moist, No pharyngeal erythema, Ear canals patent. Respiratory: Lungs CTA bilaterally, No wheeze, Respirations are non-labored. Cardiovascular: Tachycardia with heart rate in the 130s, Regular rhythm, S1 auscultated, S2 auscultated, No murmur, Good pulses equal in all extremities, Normal peripheral perfusion, No edema. Gastrointestinal: Soft, Non-tender, Non-distended, Normal bowel sounds, No organomegaly, Reports bloating. Musculoskeletal: Normal range of motion, Normal strength, No tenderness, No swelling, No deformity, Normal gait. Integumentary: Warm, Dry, [place], Intact. Neurologic: Alert, Oriented, Normal sensory, Normal motor function, No focal defects, Cranial Nerves II-XII are grossly intact, Normal deep tendon reflexes. Psychiatric: Cooperative, Appropriate mood & affect, Normal judgment, Anxiety noted. Office Procedures EKG 23543-[id number], Complete Coding Level of Care Code New Pt Level 4 (71384) Complex EM visit Add On G2211 Diagnoses Generalized anxiety disorder F41.1 Parkinson's disease without dyskinesia or fluctuating manifestations G20.A1 Dyskinesia presence: without dyskinesia Fluctuating manifestations: without fluctuating manifestations Tachycardia R00.0 Bilateral deafness H91.93 Laterality: bilateral CPT Codes EKG - CPT: 82626-[id number], Complete ([id number]) Additional Codes PHQ-9 - 29532 - PHQ-9 Billing: Yes ([id number]) DWIGHT-7 Assessment Billing - DWIGHT-7 Assessment Tool: DWIGHT-7 Assessment 46916 ([id number]) Assessment & Plan Assessment & Plan (1) Generalized anxiety disorder: Comment: - Tapering of clonazepam to avoid long-term dependency with a plan to initiate Buspirone as an alternative treatment. - Reduction in Clonazepam dose by .25mg every 2 weeks and then after 6 weeks every other day at .25mg and stop medication - Continue paroxetine for stable mood management. Code(s): F41.1 - Generalized anxiety disorder Category: Medical (2) Parkinsons disease: Comment: - Baclofen and Carbidopa/Levodopa are continued for symptom management. - Continued follow up with Neurology Code(s): G20 - Parkinson's disease Category: Medical Qualifiers: Dyskinesia presence: without dyskinesia Fluctuating manifestations: without fluctuating manifestations Qualified Code(s): G20.A1 - Parkinson's disease without dyskinesia, without mention of fluctuations (3) Tachycardia: Comment: - EKG Obtained in clinic demonstrates an elevated heart rate of up to 122, records show heart rates over 130 over the past few years) - Will obtain and ECHO and then determine initiation of metoprolol Code(s): R00.0 - Tachycardia, unspecified Category: Medical (4) Deaf: Comment: - Age of 2 post menigitis Code(s): H91.90 - Unspecified hearing loss, unspecified ear Category: Medical Qualifiers: Laterality: bilateral Qualified Code(s): H91.93 - Unspecified hearing loss, bilateral Plan: Health Maintenance: - Colonoscopy every 10 years as per last recall - Routine monitoring of electrolytes, thyroid function, and cholesterol levels with bloodwork Patient was informed and verbally consented to the use of an ambient scribe for clinic note documentation during this visit. Plan I discussed with the patient the need to address his medication regimen, particularly to assess the necessity of clonazepam due to its long-term dependency risks. We plan to taper this medication while initiating Buspirone, which is thought to complement his Parkinson's treatment. The patient will undergo lab work to check various health markers. I explained the rationale for continuous monitoring of his elevated heart rate and suggested possible introdu ction of a beta-malka. Biannual follow-up visits are planned to monitor his chronic conditions and medication adjustments. Orders: Orders Complete Blood Count Auto Diff Today Z76.89 - Persons encountering health services in other specified circumstances Comprehensive Met. Panel Today Z76.89 - Persons encountering health services in other specified circumstances Hepatitis A,B,C Profile Today Z76.89 - Persons encountering health services in other specified circumstances Lipid Panel Today Z76.89 - Persons encountering health services in other specified circumstances Syphilis Screen Today Z76.89 - Persons encountering health services in other specified circumstances TSH reflex Free T4 Today Z76.89 - Persons encountering health services in other specified circumstances AMB EKG-In Office Today R00.0 - Tachycardia, unspecified Hemoglobin A1c Today Z76.89 - Persons encountering health services in other specified circumstances HIV Ab/Ag Today Z76.89 - Persons encountering health services in other specified circumstances Vitamin D 25-OH Total Today Z76.89 - Persons encountering health services in other specified circumstances CA echo transthoracic complete Today R00.0 - Tachycardia, unspecified Medications: New buspirone 5 mg PO BID 180 tabs 0RF 90 days clonazepam (Klonopin) administer 30 minutes before bedtime 0.25 mg (1/2 x 0.5 mg) PO BEDTIME 7 tabs 0RF 2 weeks baclofen 10 mg PO TID PRN clonazepam (Klonopin) administer 30 minutes before bedtime 0.75 mg (1.5 x 0.5 mg) PO BEDTIME 21 tabs 0RF 2 weeks clonazepam (Klonopin) administer 30 minutes before bedtime 0.5 mg PO BEDTIME 14 tabs 0RF 2 weeks Discontinued clonazepam Discontinued Reason: Doctor's Order 1 mg PO BEDTIME PRN 8 tabs 0RF Insomnia Patient Instructions: - Continue current Parkinson's medication regimen - Begin clonazepam tapering as directed - Start Buspirone as prescribed - Schedule follow-up for lab work results - Monitor heart rate and report significant changes - Follow colonoscopy schedule as advised
[2025-03-12 13:05] VITALS: BP 116/66; PULSE 120; RESP 18; TEMP 36.6; O2SAT 95; BMI 32.1
== END 2025-03-12 13:51 | disposition home or self-care (01) ==
PROVIDERS: PCP Student in an Organized Health Care Education/Training Program; Visit Provider Student in an Organized Health Care Education/Training Program
DX: F41.1 Generalized anxiety disorder (principal); G20.A1 Parkinson's disease without dyskinesia, without mention of fluctuations; R00.0 Tachycardia, unspecified; H91.93 Unspecified hearing loss, bilateral

== ENCOUNTER → 2025-03-12 12:51 | Outpatient (BNVA) | payer MEDICARE, SELFPAY | PROVIDERS: PCP Physician Assistant; Visit Provider Student in an Organized Health Care Education/Training Program | DX: F41.1 Generalized anxiety disorder (principal); G20.A1 Parkinson's disease without dyskinesia, without mention of fluctuations; R00.0 Tachycardia, unspecified; H91.93 Unspecified hearing loss, bilateral; Z79.899 Other long term (current) drug therapy; Z13.31 Encounter for screening for depression; Z13.39 Encounter for screening examination for other mental health and behavioral disorders | CPT/HCPCS: 93005; 96127; 99202 ==

== ENCOUNTER 2025-03-21 14:07 | Outpatient (REF) | payer MEDICARE, SELFPAY ==
[2025-03-21 16:03] LABS: MANUAL DIFF FLAG NO
[2025-03-21 16:15] LABS: Hematocrit 44.8 % (42.0-52.0); Hemoglobin 15.0 g/dl (14.0-18.0); Imm Gran Abs Auto 0.03 X10*3/uL (0.00-0.03); Imm Gran Pct Auto 0.4 % (0.0-0.4); Lymphocytes Absolute Auto 1.7 X10*3/uL (1.2-4.9); Mean Corpuscular HGB Conc 33.5 g/dl (31.0-36.0); Mean Corpuscular Hemoglobin 30.4 pg (27.0-33.0); Mean Corpuscular Volume 90.9 fL (80.0-98.0); NRBC Abs Auto 0.000 X10*3/uL (0.0-0.012); NRBC Pct Auto 0.0 /100WBC (0.0-0.2); Platelet Count 282 X10*3/uL (160-400); Red Blood Count 4.93 X10*6/uL (4.60-5.80); White Blood Count 7.3 X10*3/uL (4.8-10.8)
[2025-03-21 17:16] LABS: Alanine Aminotransferase 26 U/L (0-40); Albumin Level 4.7 g/dL (3.5-5.0); Alkaline Phosphatase 102 U/L (39-117); Anion Gap 14 (12-20); Aspartate Amino Transferase 28 U/L (5-37); Blood Urea Nitrogen 14 mg/dL (9-16); Calcium 9.5 mg/dL (8.4-10.2); Carbon Dioxide 23 mmol/L (22-29); Chloride 109 mmol/L (96-108); Cholesterol 193 mg/dL (<200); Estimated Glomerular Filt Rate > 60; HDL Cholesterol 51 mg/dL (>40); Potassium 3.6 mmol/L (3.3-5.1); Sodium 142 mmol/L (135-145); Total Protein 7.4 g/dL (6.5-8.0); Triglycerides 292 mg/dL (<150)
[2025-03-22 09:16] LABS: Syphilis Screen Nonreactive (Nonreactive)
[2025-03-22 10:29] LABS: HBS Num1 0.48 mIU/mL (0-7.99); HBc Num1 0.10 S/CO (0.00-0.79); HBsAGNum1 0.60 S/CO (0.00-0.99); HIV Num 1 0.07 S/CO (0.00-0.99); Hepatitis A Antibody IgM 0.23 Index (0-0.79); Hepatitis B Surface Antigen Negative (Negative); ~HepC Num1 0.12 S/CO (0.00-0.79); ~Hepatitis A Antibody IgM Nonreactive (Nonreactive); ~Hepatitis B Surface Antibody NONREACTIVE (Nonreactive); ~Hepatitis C Antibody Nonreactive (Nonreactive)
== END 2025-03-21 14:08 | disposition home or self-care (01) ==
LOC: HO.HMGCLDS 14:07
PROVIDERS: PCP Student in an Organized Health Care Education/Training Program; Visit Provider Student in an Organized Health Care Education/Training Program
DX: Z01.84 Encounter for antibody response examination (principal); Z11.4 Encounter for screening for human immunodeficiency virus [HIV]; Z13.29 Encounter for screening for other suspected endocrine disorder; Z13.6 Encounter for screening for cardiovascular disorders; Z13.1 Encounter for screening for diabetes mellitus; Z76.89 Persons encountering health services in other specified circumstances
CPT/HCPCS: 36415; 80053; 80061; 82306; 83036; 84443; 85025; 86704; 86706; 86709; 86780; 86803; 87340; 87389

== ENCOUNTER 2025-04-16 12:54 | Outpatient (AMB) | payer MEDICARE, SELFPAY ==
--- NOTE | 2025-04-16 13:03 | A.OFFVIS_ITS ---
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 He was treated for parkinsonian symptoms. He is presenting with Physician concern regarding management for Parkinson's Disease and a seizure disorder with medication transition from Klonopin to Pramipexole. The patient's current therapy aims to enhance motor function, addressing freezing episodes associated with Parkinson's Disease noted daily. There's an increased dosage of Pramipexole, now taken as two tablets thrice daily, contributing to his therapeutic approach in improving motor symptoms. His treatment regimen for Carbidopa is sustained without alterations. Concurrently, the patient is dealing with stress levels that potentially aggravate his condition, contributing to his symptomatic experience. His chronic seizure disorder, previously medicated with Klonopin, is now under transition with medication change to enable better management. No direct correlation to seizure manifestations beyond subjective reports of choking have been confirmed with this alteration. Additionally, the patient maintains auditory limitations due to longstanding hearing loss. Despite awareness of cochlear implants as an option, he remains non-consensual to such intervention, preferring his current level of hearing which accommodates his social engagements. [facility] Medical History (Updated 04/16/25 @ 13:05 by Laney Mercer MD) Vitamin D deficiency Tachycardia Generalized anxiety disorder Basal cell carcinoma (BCC) Skin lesion of face Deaf Parkinsons disease Surgical History (Updated 12/04/24 @ 16:34 by Ita Martinez) History of colonoscopy (~05/17/22) History of excision of pilonidal cyst (~1994) Family History Other Colon cancer Esophageal cancer Social History Household Members: None Housing: Apartment Do you presently have visiting nurse or other home services: No Unable to assess alcohol history related to: Unknown Patient Tobacco Use Status: Never used Tobacco e-Cigarette/Vaping Use: Never Used Advance Directives Date on File: 09/21/21 service: No Current occupational status: disabled Cognitive needs: No Hearing needs: Yes Vision needs: No Review of Systems Narrative - Neurological: Reports episodes of freezing. - Psychiatric: Reports stress; Denies hallucinations or illusions. - Ear/Nose/Throat: Denies auditory-related distress beyond baseline hearing loss. - Respiratory: Reports sensation of throat tightening infrequently. - Balance: Denies concerns beyond involuntary freezing associated with Parkinson's. Physical Exam Neuro Other: Mental Status: Alert and awake with his typical speech trying to speak loudly. Comprehension was intact. Cranial Nerves: CN II: Visual sosa full to confrontation, visual acuity intact. CN III, IV, : Pupils equal, round, reactive to light and accommodation. Extraocular movements are normal. CN V: Facial sensation is normal. CN VII: Facial movements symmetrical. CN VIII: Hearing intact to bedside conversation is diminished CN IX, X: Palate elevates symmetrically. CN XI: Shoulder shrug and head turn symmetrical. CN XII: Tongue midline without atrophy or fasciculations. Extrapyramidal: Frequent freezing episode while walking in a short-stepped gait. Speech: Normal; no dysarthria or tremor. Assessment & Plan Assessment & Plan (1) Parkinsons disease: Comment: MRI brain WO at [facility] in October 2018: minimal R frontal punctate WM few lesions, not significant MRI C spine at [facility] in November 2018: [place]. Code(s): G20 - Parkinson's disease Category: Medical (2) Chronic static encephalopathy: Code(s): G93.49 - Other encephalopathy Category: Medical Plan Impression: 1. 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 Deafness from meningitis 3. Parkinsonism Recommendations: 1. Carbidopa/levodopa, 25/100, 2 tablets, 5 times a day 2. Carbidopa/levodopa extended release, 50/200, 1 tablet, 3 times a day 3. Baclofen 10 mg tablets, 1 tablet, twice a day 4. Pramipexole 0.25 mg tablet, 1 tablet 3 times a day Medications: New carbidopa-levodopa 50-200 mg ER 1 tab PO TID 270 tabs 1RF pramipexole 0.5 mg PO TID 270 tabs 1RF Changed From carbidopa-levodopa 25-100 mg 2 tabs orally 5 times per day; To carbidopa-levodopa 25-100 mg 2 tabs orally 5 times per day; 900 tabs 1RF 90 days From baclofen 10 mg PO TID PRN To baclofen 10 mg PO BID 180 tabs 1RF Discontinued pramipexole Discontinued Reason: Doctor's Order 0.25 mg PO TID 270 tabs 1RF Coding Level of Care Code Est Pt Level 3 (59794) Global (79599) Diagnoses Parkinsons disease G20 Chronic static encephalopathy G93.49
--- OUTSIDE RECORDS SUMMARY | 2025-04-16 15:30 | XMS_ITS | Patient Health Record ---
Author Organization [facility] Address [address] [place] [address] Care Team Providers Care Hspt Tutor Name Role Phone Norm (RETIRED) Ramón CONCEPCION Primary Care Provide r Oracio Ramos Jr Unavailable Allergies No Known Allergies Reason For Referral No Information Medications Medication SIG (Take, Route, Frequency, Duration) Notes Start Date End Date Status clonazePAM 1 MG 1 tablet Orally Twic e a day Active Paxil 40 MG 1 tablet in the morn ing Orally Once a day Active Levodopa 42 MG 2 capsules as needed Inhalation Five times a day Active Carbidopa-Levodopa 25-100 MG 1 tablet as needed Orally Two times a Week; Duration: 30 day(s) Active PARoxetine HCl 40 MG 1 tablet in the mor iram Orally Once a day; Duration: 30 day(s) Active MiraLax (colon prep) 17 GM/SCOOP mixed with Gatorade or Crystal Light Orally begin at 5:00 p.m. the day before the procedure; Duration: 1 day 04/07/2022 Active Pramipexole Dihydrochloride 0.25 MG 1 tablet Orally Once a day; Duration: 30 day(s) Active Baclofen 20 MG 1 tablet Administer without regards to meals as needed Orally Twice a day Active Immunizations Vaccine Route Administration Date Status Comme nts Influenza Unknown 04/07/2022 Administered Problems Problem Type SNOMED Code ICD Code Onset Dates Problem Status W/U Status Risk Notes Problem Rectal bleeding (07822350) Rectal bleeding (K62.5) Active confirmed Problem Diverticulitis (47480205) Diverticulitis (K57.92) Active confirmed Problem Family History of Cancer of Colon (Situation) (051658310) Family history of colon cancer (Z80.0) Active confirmed Plan Of Treatment Future Test Test Name Order Date COLONOSCOPY 10/09/2014 COLONOSCOPY 04/07/2022 Insurance Providers Payer Name Payer Address Payer Phone Subscriber Number Group Number Insured Name Patient Relationship to Insured Coverage Start Date Coverage End Date [facility] [address] [place] [address] [id number] SP ALEX SPENCER Self - patient is the insured MEDICA[employer] OF [place] [employer] [address] [place] [address] [id number] ALEX SPENCER Self - patient is the insured Medical (General) History Medical History History ICD Code anxiety parkinsons chronic static encephelopathy deafness hyperflexia gait disorder muscle spasms Surgical History Surgery Date(Month/Year) cyst removal yarsanism Hospitalization History Reason Date(Month/Year) diverticulitis
--- OUTSIDE RECORDS SUMMARY | 2025-04-16 15:30 | XMS_ITS | Clinical Summary ---
Author Organization [facility] Address [address] [place] [address] Care Team Providers Care Territory Supervisor Name Role Phone Ramón Zheng MD Primary Care Provider [phone] Allergies No known active allergies Medications baclofen (LIORESAL) 20 MG tablet Take 1 tablet (20 mg total) by mouth every evening. 08/15/2022 Active carbidopa-levod opa (SINEMET CR) 50-200 MG per tablet TAKE 1 TABLET BY MOUTH AT 10 AM AND TAKE 1 TABLET BY MOUTH AT 10 PM 90 08/18/2022 Active clonazePAM (KlonoPIN) 1 MG tablet Take 1 tablet (1 mg total) by mouth nightly. 09/08/2022 Active PARoxetine (PAXIL) 40 MG tablet Take 1 tablet (40 mg total) by mouth daily. DIRECTED 08/25/2022 Active pramipexole (miraPEx) 0.25 MG tablet Take 1 tablet (0.25 mg total) by mouth 3 (three) times a day. 07/07/2022 Active carbidopa-levod opa (SINEMET) 25-100 MG per tablet TAKE 2 TABLETS BY MOUTH EVERY 3 HOURS UP TO 10 TABS A DAY 07/02/2022 Active amoxicillin-cla vulanate (AUGMENTIN) 875-125 MG per tabletIndicatio ns:Abscess of mandible Take 1 tablet by mouth 2 (two) times a day. 28 tablet 09/20/2022 Active traMADol (ULTRAM) 50 MG tabletIndicatio ns:Abscess of mandible Take 1 tablet (50 mg total) by mouth 3 times daily (every 8 hours) as needed for moderate pain or severe pain. 9 tablet 09/20/2022 Active Active Problems Problem Noted Date Diagnosed Date Mandibular abscess 09/16/2022 Social History Tobacco Use Types Packs/Day Years Used Date Smoking Tobacco: Never Assessed AUDIT-C Answer Date Recorded Q1: How often do you have a drink containing alcohol? Never 09/16/2022 Q2: How many drinks containi ng alcohol do you have on a typical day when you are drinking? Patient does not drink Q3: How often do you have si x or more drinks on one occasion? Never 09/16/2022 Overall Financial Resource Strain (CARDIA) Answe r Date Recorded How hard is it for you to pa y for the very basics like food, housing, medical care, and heating? Not very hard 09/19/2022 Hunger Vital Sign Answer Date Recorded Within the past 12 months, y ou worried that your food would run out before you got the money to buy more. Never true 09/20/19 23 Within the past 12 months, t he food you bought just didn't last and you didn't have money to get more. Never true 09/19/2022 PRAPARE - Transportation Answer Date Re corded In the past 12 months, has l ack of transportation kept you from medical appointments or from getting medications? No 09/03 In the past 12 months, has l ack of transportation kept you from meetings, work, or from getting things needed for daily living? No 09/19/2022 Housing Stability Vital Sign Answer Jason e Recorded In the last 12 months, was t here a time when you were not able to pay the mortgage or rent on time? No 09/19/2022 In the last 12 months, how many places have you lived? 1 09/19/2022 In the last 12 months, was t here a time when you did not have a steady place to sleep or slept in a half-way (including now)? No 09/19/2022 Sex and Gender Information Value Date Recorded Sex Assigned at Male 09/16/2022 3:22 PM EDT Legal Sex Male 11:55 AM EDT Gender Identity Male 09/16/2022 3:22 PM EDT Sexual Orientation Choose not to disclose 2022 3:22 PM EDT Last Filed Vital Signs Vital Sign Reading Time Taken Comments Blood Pressure 100/60 09/20/2022 3:36 PM EDT Pulse 94 09/20/2022 3:36 PM EDT Temperature 36.3 C (97.4 F) 09/20/2022 3:36 PM EDT Respiratory Rate 18 09/20/2022 3:36 PM EDT Oxygen Saturation 95% 09/20/2022 3:36 PM EDT Inhaled Oxygen Concentration - - Weight 89 kg (196 lb 3.4 oz) 09/16/2022 10:00 PM EDT Height 170.2 cm (5' 7 ) 09/16/2022 10:00 PM EDT Body Mass Index 30.73 09/16/2022 10:00 PM EDT Plan of Treatment Health Maintenance Due Date Last Done Comments Hepatitis C Virus Screening 1974 HIV Screening 1987 DTaP/Tdap/Td Vaccines (1 - Tdap) 1993 Hepatitis B Vaccines (1 of 3 - 19+ 3-dose series) 07/07 Pneumococcal Vaccines 50+ (1 of 1 - PCV) 2024 Zoster (Shingles) Vaccine (1 of 2) 2024 Influenza Vaccine 01/03/2025 04/07/2022 COVID-19 Vaccine (1 - 2023- season) 2025 Colonoscopy 05/17/2032 05/17/2022 RSV Vaccine 50 years and old er and Patients (1 - 1-dose 75+ series) 2049 Insurance [facility] MEDICARE [facility] MEDIC[facility] Advance Directives * Full Code (Latest Code Status on File) Date Activated Date Inactivated Comments 09/16/2022 8:44 PM Question Answer Comments Decision Thoroughly Discussed with: Patient Care Teams Territory Supervisor Relationship Specialty Start Date End Date Ramón Zheng MD [address] [place] [address] [place] [address] PCP - General 09/19/22
== END 2025-04-16 13:21 | disposition home or self-care (01) ==
LOC: HO.HSM 12:54
PROVIDERS: PCP Internal Medicine; Referring Provider Internal Medicine; Visit Provider Psychiatry & Neurology Neurology
DX: G20.C Parkinsonism, unspecified (principal); G93.49 Other encephalopathy
CPT/HCPCS: 99213; G2211

== ENCOUNTER → 2025-04-16 12:54 | Outpatient (BNVA) | payer MEDICARE, SELFPAY | PROVIDERS: PCP Internal Medicine; Referring Provider Internal Medicine; Visit Provider Psychiatry & Neurology Neurology | DX: G20.C Parkinsonism, unspecified (principal); G93.49 Other encephalopathy; G93.40 Encephalopathy, unspecified; H91.93 Unspecified hearing loss, bilateral; F02.84 Dementia in other diseases classified elsewhere, unspecified severity, with anxiety | CPT/HCPCS: 99212 ==

== ENCOUNTER 2025-04-29 13:57 | Outpatient (AMB) | payer MEDICARE, SELFPAY ==
--- NOTE | 2025-04-29 14:01 | MHC.PC.OV ---
Vital Signs 04/29/25 14:12 Height 5 ft 6.61 in Weight 202 lb BMI 32.0 BP 124/64 Blood Pressure Location Lt brachial Position Sitting Respiration 22 H Pulse 132 H Pulse Source Pulse Oximeter Temp 97.9 F Temp Source Oral Pulse Oximetry (%) 97 Oxygen Delivery Method Room Air Intake Visit Reasons: Ear pain X1 month Project Management Director Required: No Accompanied by: Brother Allergies No Known Allergies Allergy (Verified 04/29/25 14:03) Medication List - Last Reconciled 04/29/25 by Arpit Dawson MD baclofen 10 mg PO BID buspirone 5 mg PO BID 90 days carbidopa-levodopa 25-100 mg 2 tabs orally 5 times per day; 90 days carbidopa-levodopa 50-200 mg ER 1 tab PO TID cholecalciferol (vitamin D3) 1,250 mcg PO QWEEK 12 weeks paroxetine HCl 40 mg PO DAILY pramipexole 0.5 mg PO TID Tobacco use date assessed: 03/12/25 Dental Screening Dental Screen Date: 03/12/25 HPI HPI Comments History of Present Illness Details History of Present Illness The patient is a 49 year old individual presenting with right ear pain and generalized malaise. The ear has been bothering the patient for 6-7 days, with other reports suggesting symptoms have been present for up to six weeks. Associated symptoms include feeling feverish and flu-like symptoms, as well as a minor runny nose. The patient denies any drainage from the ear, falls, or recent trauma to the area. The patient also reports feeling generally unwell for about four weeks, a symptom that began before discontinuing clonazepam. The patient stopped taking clonazepam two weeks ago after having been on it for a long period. The only other recent medication change was an increase in the pramipexole dose from 0.25 mg to 0.5 mg approximately two weeks ago. The patient has a history of Parkinson's disease, for which the patient takes carbidopa-levodopa, baclofen, and pramipexole. Shakiness is attributed to the Parkinson's disease. The patient's anxiety is reportedly well-managed with buspirone. Medical History: - Parkinson's disease - Anxiety - Vitamin D deficiency Medications: - Pramipexole 0.5 mg, dose recently increased from 0.25 mg for Parkinson's disease - Baclofen 10 mg twice a day for Parkinson's disease - Carbidopa-levodopa 25-100 mg three times a day for Parkinson's disease - Buspirone for anxiety - Vitamin D for vitamin D deficiency - Clonazepam, discontinued two weeks ago Social History - Functional Status: The patient's walking is reported as good today. [facility] Medical History (Updated 04/29/25 @ 14:54 by Arpit Dawson MD) Malaise Bilateral impacted cerumen Vitamin D deficiency Tachycardia Generalized anxiety disorder Basal cell carcinoma (BCC) Skin lesion of face Deaf Parkinsons disease Surgical History (Updated 12/04/24 @ 16:34 by Ita Martinez) History of colonoscopy (~05/17/22) History of excision of pilonidal cyst (~1994) Family History Other Colon cancer Esophageal cancer Social History Household Members: None Housing: Apartment Do you presently have visiting nurse or other home services: No Patient Tobacco Use Status: Never used Tobacco e-Cigarette/Vaping Use: Never Used Advance Directives Date on File: 09/21/21 service: No Current occupational status: disabled Cognitive needs: No Hearing needs: Yes Vision needs: No Questionnaire Thrive Questionnaire Date Thrive assessed: 03/12/25 DWIGHT-7 AMB Questionnaire DWIGHT-7 Date DWIGHT - 7 assessed: 03/12/25 Source: Developed by Drs. Mina Sinha, Kathy Rosas, Servando Marin and colleagues, with an educational pola from [employer]. Review of Systems Narrative Review of Systems - Constitutional: Reports feeling feverish and generally unwell. - HEENT: Reports pain in the right ear. - Denies drainage from the ear. - Reports mild rhinorrhea. - Neurological: Reports shakiness and stuttering. - Skin: Reports a burning sensation over the body. - Psychiatric: Reports that anxiety is well-controlled. All systems reviewed & are unremarkable except as reviewed in HPI and above Physical exam (Primary Care) Vital Signs: Last Vital Signs Temp 97.9 F 04/29/25 14:12 Pulse 132 H 04/29/25 14:12 Resp 22 H 04/29/25 14:12 BP 124/64 04/29/25 14:12 Pulse Ox 97 04/29/25 14:12 Oxygen Delivery Method Room Air 04/29/25 14:12 BMI result Body Mass Index 32.0 Tobacco/Smoking Status: Tobacco use Status Tobacco use date assessed 03/12/25 04/29/25 14:03 Patient Tobacco Use Status Never used Tobacco 04/29/25 14:03 e-Cigarette/Vaping Use Never Used 04/29/25 14:03 Thrive Assessment: Date of Thrive Assessment Date Thrive assessed 03/12/25 04/29/25 14:03 Narrative Physical Exam General: Alert and oriented, Well nourished, No acute distress. Eye: Pupils are equal, round and reactive to light, Intact accommodation, Extraocular movements are intact, Normal conjunctiva, Vision unchanged. HENT: Normocephalic, Atraumatic, Tympanic membranes are obscured due to wax buildup, Normal hearing, Oral mucosa is moist, No pharyngeal erythema, Ear canals blocked with wax. Respiratory: Lungs CTA bilaterally, No wheeze, Respirations are non-labored. Cardiovascular: Regular rate, Regular rhythm, S1 auscultated, S2 auscultated, No murmur, Good pulses equal in all extremities, Normal peripheral perfusion, No edema. Gastrointestinal: Soft, Non-tender, Non-distended, Normal bowel sounds, No organomegaly. Musculoskeletal: Normal range of motion, Normal strength, No tenderness, No swelling, No deformity, Normal gait. Integumentary: Warm, Dry, [place], Intact. Neurologic: Alert, Oriented, Normal sensory, Normal motor function, No focal defects, Cranial Nerves II-XII are grossly intact, Normal deep tendon reflexes. Psychiatric: Cooperative, Appropriate mood & affect, Normal judgment. Office Procedures Cerumen Removal From which ear canal was the cerumen removed: bilateral Removal: irrigation Notes: patient tolerated procedure well and no complications [id number] Irrigation/Lavage Coding Level of Care Code Est Pt Level 4 (64221) Complex visit Add On G2211 Diagnoses Bilateral impacted cerumen H61.23 Malaise R53.81 Parkinson's disease without dyskinesia or fluctuating manifestations G20.A1 Dyskinesia presence: without dyskinesia Fluctuating manifestations: without fluctuating manifestations Generalized anxiety disorder F41.1 CPT Codes Office Procedure - CPT: 70276-[id number] Irrigation/Lavage ([id number]) Assessment & Plan Assessment & Plan (1) Bilateral impacted cerumen: Comment: - The patient's primary complaint of right ear pain is most likely due to significant cerumen impaction observed in both ears, which is preventing visualization of the tympanic membranes. - An in-office ear lavage provided some partial, immediate relief. - The plan is to prescribe cerumenolytic ear drops (5 drops in each ear twice daily for 4 days) to soften the wax. - The patient will follow up in one week for a repeat ear lavage to clear the remaining impaction. Code(s): H61.23 - Impacted cerumen, bilateral Category: Medical (2) Malaise: Comment: - The patient reports feeling unwell for about 4 weeks. - The differential diagnosis includes a systemic reaction to the ear impaction, a viral illness, or a side effect from the recent increase in the pramipexole dose. - The plan includes testing for COVID-19 and influenza to rule out infection. Code(s): R53.81 - Other malaise Category: Medical (3) Parkinsons disease: Comment: - The patient's condition is noted, with symptoms of shakiness and improved gait. - The plan is to continue the current medication regimen and monitor for side effects of the recent pramipexole dosage change. Code(s): G20 - Parkinson's disease Category: Medical Qualifiers: Dyskinesia presence: without dyskinesia Fluctuating manifestations: without fluctuating manifestations Qualified Code(s): G20.A1 - Parkinson's disease without dyskinesia, without mention of fluctuations (4) Generalized anxiety disorder: Comment: - The patient's anxiety is stable and well-controlled on buspirone. - The plan is to continue the current medication. Code(s): F41.1 - Generalized anxiety disorder Category: Medical Plan: Health Maintenance: - Diagnostic testing for COVID-19 and influenza was recommended, if symptoms continue Patient was informed and verbally consented to the use of an ambient scribe for clinic note documentation during this visit. Plan I discussed with the patient and caregiver that the physical exam revealed a large amount of impacted ear wax in both ears, which is the most likely cause for the ear pain. I explained that because I could not see the eardrum, there is a risk of causing further problems with irrigation if a perforation is present. We attempted a gentle in-office flush which provided some relief. I have prescribed ear drops to soften the wax and recommended the patient use them for a week before returning for a follow-up appointment to complete the ear cleaning. We also discussed that the generalized malaise could be related to the recent change in the Parkinson's medication or a viral illness, and I recommended testing for COVID and flu. Medications: New carbamide peroxide 6.5% Both Ears 5 drps otic (ears) Q12H 30 mL 0RF 4 days Patient Instructions: - Use the prescribed ear drops in both ears to help soften the ear wax. - Put 5 drops in each ear twice a day for the next 4 days. - Schedule a follow-up appointment in one week to have your ears flushed out again. - Please get tested for COVID-19 and the flu.
[2025-04-29 14:12] VITALS: BP 124/64; PULSE 132; RESP 22; TEMP 36.6; O2SAT 97; BMI 32.0
--- OUTSIDE RECORDS SUMMARY | 2025-04-29 17:53 | XMS_ITS ---
Author Name [facility] Organization Unknown Encounters Encounter Type Encounter Reason Primary Diagnosis Location Date Inpatient Inflammatory conditions of [id number] 09/16/2022 Care Team Organization Name Specialty Phone Email Start Date End Da te [place] [facility] Ramón Zheng Primary Care 09/19/2022 09/20/19 [place] NO PCP Primary Care 09/16/2022 09/16/2022 [place] 09/16/2022
--- OUTSIDE RECORDS SUMMARY | 2025-04-29 17:53 | XMS_ITS | Clinical Summary ---
Author Organization [facility] Address [address] [place] [address] Care Team Providers Care Avionics Electrical Engineer Name Role Phone Ramón Zheng MD Primary Care Provider [phone] Allergies No known active allergies Medications baclofen [...] place to sleep or slept in a usp (including now)? No 09/19/2022 Sex and Gender [...] (1 - 1-dose 75+ series) 2049 Insurance [facility] [place] [address] [facility] [place] [address] Advance Directives * Full Code (Latest Code Status on File) Date Activated Date Inactivated Comments 09/16/2022 8:44 PM Question Answer Comments Decision Thoroughly Discussed with: Patient Care Teams Avionics Electrical Engineer Relationship Specialty Start Date End Date Ramón Zheng MD [address] [place] [address] [place] [address] PCP - General 09/19/22
--- OUTSIDE RECORDS SUMMARY | 2025-04-29 17:53 | XMS_ITS | Patient Health Record ---
Author Organization [facility] Address [address] [place] [address] Care Team Providers Care Recovery Room Nurse Name Role Phone Norm (RETIRED) Ramón CONCEPCION Primary Care Provide r Unavailable Oracio Claros Jr Unavailable [phone] Allergies No Known Allergies Reason For Referral No Information Medications Medication SIG (Take, Route, Frequency, Duration) Notes Start Date End Date Status clonazePAM 1 MG Tablet 1 tablet Orally T wice a day Active Paxil 40 MG Tablet 1 tablet in the morn ing Orally Once a day Active Levodopa 42 MG Capsule 2 capsules as nee ded Inhalation Five times a day Active Carbidopa-Levodopa 25-100 MG Tablet 1 tablet as needed Orally Two times a Week; Duration: 30 day(s) Active PARoxetine HCl 40 MG Tablet 1 tablet in the morning Orally Once a day; Duration: 30 day(s) Active MiraLax (colon prep) 17 GM/SCOOP Powder mixed with Gatorade or Crystal Light Orally begin at 5:00 p.m. the day before the procedure; Duration: 1 day 04/07/2022 Active Pramipexole Dihydrochloride 0.25 MG Tablet 1 tablet Orally Once a day; Duration: 30 day(s) Active Baclofen 20 MG Tablet 1 tablet Administe r without regards to meals as needed Orally Twice a day Active Immunizations Vaccine Route Administration Date Status Comme nts Influenza Unknown 04/07/2022 Administered Social History Social History Additional Details Category Social Info Options Details Miscellaneous: Marital status: single Occupation: delivery sales worker [employer] Problems Problem Type SNOMED Code ICD Code Onset Dates Problem Status W/U Status Risk Notes Problem Rectal bleeding (05484747) Rectal bleeding (K62.5) Active confirmed Problem Diverticulitis (22831625) Diverticulitis (K57.92) Active confirmed Problem Family History of Cancer of Colon (Situation) (212017715) Family history of colon cancer (Z80.0) Active confirmed Plan Of Treatment Future Test Test Name Order Date COLONOSCOPY 10/09/2014 COLONOSCOPY 04/07/2022 Insurance Providers Payer Name Payer Address Payer Phone Subscriber Number Group Number Insured Name Patient Relationship to Insured Coverage Start Date Coverage End Date [facility] [address] [place] [address] [phone] [id number] SP ALEX SPENCER Self - patient is the insured MEDICAID OF [employer] [address] [place] [phone] [id number] ALEX SPENCER Self - patient is the insured Medical (General) History Medical History History ICD Code anxiety parkinsons chronic static encephelopathy deafness hyperflexia gait disorder muscle spasms Surgical History Surgery Date(Month/Year) cyst removal anabaptism Hospitalization History Reason Date(Month/Year) diverticulitis
== END 2025-04-29 14:46 | disposition home or self-care (01) ==
LOC: HO.HMCHD 13:58
PROVIDERS: PCP Student in an Organized Health Care Education/Training Program; Visit Provider Student in an Organized Health Care Education/Training Program
DX: R53.81 Other malaise (principal); G20.A1 Parkinson's disease without dyskinesia, without mention of fluctuations; H61.23 Impacted cerumen, bilateral; F41.1 Generalized anxiety disorder

== ENCOUNTER → 2025-04-29 13:57 | Outpatient (BNVA) | payer MEDICARE, SELFPAY | PROVIDERS: PCP Internal Medicine; Visit Provider Student in an Organized Health Care Education/Training Program | DX: H61.23 Impacted cerumen, bilateral (principal); R53.81 Other malaise; G20.A1 Parkinson's disease without dyskinesia, without mention of fluctuations; F41.1 Generalized anxiety disorder | CPT/HCPCS: 69209; 99212 ==

== ENCOUNTER 2025-05-08 13:48 | Outpatient (AMB) | payer MEDICARE, SELFPAY ==
[2025-05-08 13:50] VITALS: BP 116/74; PULSE 129; RESP 20; TEMP 36.3; O2SAT 94; BMI 32.0
--- NOTE | 2025-05-08 13:50 | A.OFFPC_ITS ---
Vital Signs 05/08/25 13:50 Height 5 ft 6.61 in Weight 202 lb BMI 32.0 BP 116/74 Blood Pressure Location Lt brachial Position Sitting Respiration 20 Pulse 129 H Pulse Source Pulse Oximeter Temp 97.4 F Temp Source Temporal Artery Scan Pulse Oximetry (%) 94 Oxygen Delivery Method Room Air Intake Visit Reasons: 1 WK f/u Ear INF Allergies No Known Allergies Allergy (Verified 05/08/25 13:50) Medication List - Last Reconciled 05/08/25 by Arpit Dawson MD baclofen 10 mg PO BID buspirone 5 mg PO BID 90 days carbamide peroxide 6.5% 5 drps otic (ears) Q12H 4 days carbidopa-levodopa 25-100 mg 2 tabs orally 5 times per day; 90 days carbidopa-levodopa 50-200 mg ER 1 tab PO TID cholecalciferol (vitamin D3) 1,250 mcg PO QWEEK 12 weeks paroxetine HCl 40 mg PO DAILY pramipexole 0.5 mg PO TID Tobacco use date assessed: 03/12/25 Dental Screening Dental Screen Date: 03/12/25 HPI HPI Comments History of Present Illness Details History of Present Illness The patient is a 49 year old male presenting for management of cerumen impaction. He reports feeling much better and relieved, although he is a little sore. He has a history of requiring periodic ear cleaning on a yearly basis for wax buildup. He did not use the prescribed ear drops prior to the visit. The patient has a history of Parkinson's disease and anxiety. His anxiety is reportedly well-controlled with his current medication regimen. He is also deaf, which makes it difficult for him to determine the nature of his symptoms. The patient's mother reports he had an episode of dizziness on , which resolved on its own and may have been related to a change in his Parkinson's medication. He previously experienced jaw pressure, which has since resolved. Medical History: - Parkinson's disease - Anxiety - Deafness - History of cerumen impaction requiring periodic removal - History of an episode of dizziness Medications: - Carbidopa-levodopa 50/200 mg ER, taken three times a day for Parkinson's disease. - Carbidopa-levodopa 25/100 mg, two tabl ets taken five times a day (every three hours) for Parkinson's disease. - Buspirone for anxiety. - Baclofen 10 mg for Parkinson's disease . - Paroxetine 40 mg for anxiety. - Pramipexole 0.5 mg, three times a day for Parkinson's disease. Family History: - Younger brother has similar issues wit h cerumen accumulation. Social History - Functional Status: The patient is deaf , which impacts his ability to describe his symptoms. [facility] Medical History (Updated 05/08/25 @ 14:25 by Arpit Dawson MD) Malaise Bilateral impacted cerumen Vitamin D deficiency Tachycardia Generalized anxiety disorder Basal cell carcinoma (BCC) Skin lesion of face Deaf Parkinsons disease Surgical History (Updated 12/04/24 @ 16:34 by Ita Martinez) History of colonoscopy (~05/17/22) History of excision of pilonidal cyst (~1994) Family History Other Colon cancer Esophageal cancer Social History Household Members: None Housing: Apartment Do you presently have visiting nurse or other home services: No Patient Tobacco Use Status: Never used Tobacco e-Cigarette/Vaping Use: Never Used Advance Directives Date on File: 09/21/21 service: No Current occupational status: disabled Cognitive needs: No Hearing needs: Yes Vision needs: No Questionnaire Thrive Questionnaire Date Thrive assessed: 03/12/25 DWIGHT-7 AMB Questionnaire DWIGHT-7 Date DWIGHT - 7 assessed: 03/12/25 Source: Developed by Drs. Mina Sinha, Kathy Rosas, Servando Marin and colleagues, with an educational pola from [employer]. Review of Systems Narrative Review of Systems - Constitutional: Reports feeling a little sore. - HEENT: Reports feeling better regarding his ear symptoms. Is deaf. Denies jaw pressure. - Neurological: Reports a past resolved episode of dizziness. - Psychiatric: Reports anxiety is well-controlled. All systems reviewed & are unremarkable except as reviewed in HPI and above Physical exam (Primary Care) Vital Signs: Last Vital Signs Temp 97.4 F 05/08/25 13:50 Pulse 129 H 05/08/25 13:50 Resp 20 05/08/25 13:50 BP 116/74 05/08/25 13:50 Pulse Ox 94 05/08/25 13:50 Oxygen Delivery Method Room Air 05/08/25 13:50 BMI result Body Mass Index 32.0 Tobacco/Smoking Status: Tobacco use Status Tobacco use date assessed 03/12/25 05/08/25 13:51 Patient Tobacco Use Status Never used Tobacco 05/08/25 13:51 e-Cigarette/Vaping Use Never Used 05/08/25 13:51 Thrive Assessment: Date of Thrive Assessment Date Thrive assessed 03/12/25 05/08/25 13:51 Narrative Physical Exam General: +Alert and oriented, Well nourished, No acute distress. Eye: Pupils are equal, round and reactive to light, Intact accommodation, Extraocular movements are intact, Normal conjunctiva, Vision unchanged. HENT: Normocephalic, Atraumatic, Tympanic membranes are clear, Normal hearing, Oral mucosa is moist, No pharyngeal erythema, Ear canals with significant wax buildup. Respiratory: Lungs CTA bilaterally, No wheeze, Respirations are non-labored. Cardiovascular: Regular rate, Regular rhythm, S1 auscultated, S2 auscultated, No murmur, Good pulses equal in all extremities, Normal peripheral perfusion, No edema. Gastrointestinal: Soft, Non-tender, Non-distended, Normal bowel sounds, No organomegaly. Musculoskeletal: Normal range of motion, Normal strength, No tenderness, No swelling, No deformity, Normal gait. Integumentary: Warm, Dry, [place], Intact. Neurologic: Alert, Oriented, Normal sensory, Normal motor function, No focal defects, Cranial Nerves II-XII are grossly intact, Normal deep tendon reflexes. Psychiatric: Cooperative, Appropriate mood & affect, Normal judgment. Office Procedures Cerumen Removal From which ear canal was the cerumen removed: bilateral Removal: irrigation and otoscope w/curette Notes: patient tolerated procedure well, no complications and ear canal clear 40723-Kcc Wax Removal by Spoon/Curette Coding Level of Care Code Est Pt Level 4 (42706) Complex visit Add On G2211 Diagnoses Bilateral impacted cerumen H61.23 Parkinson's disease without dyskinesia or fluctuating manifestations G20.A1 Dyskinesia presence: without dyskinesia Fluctuating manifestations: without fluctuating manifestations Generalized anxiety disorder F41.1 CPT Codes Office Procedure - CPT: 87766-Rrz Wax Removal by Spoon/Curette ([id number]) Assessment & Plan Assessment & Plan (1) Bilateral impacted cerumen: Comment: - The patient has a significant amount of cerumen impaction, which is a chronic issue requiring yearly removal. - He reports some improvement in symptoms but is still sore. - Ears irrigated with TM visualized and patient reporting relief of pressure Code(s): H61.23 - Impacted cerumen, bilateral Category: Medical (2) Parkinsons disease: Comment: - The patient is on a complex, multi-dosing medication schedule. - A recent episode of dizziness may have been related to a medication change. - Plan is to continue the current medication regimen and monitor for side effects. Code(s): G20 - Parkinson's disease Category: Medical Qualifiers: Dyskinesia presence: without dyskinesia Fluctuating manifestations: without fluctuating manifestations Qualified Code(s): G20.A1 - Parkinson's disease without dyskinesia, without mention of fluctuations (3) Generalized anxiety disorder: Comment: - The patient's anxiety appears to be well-controlled on his current medications. - Plan is to continue buspirone and paroxetine as prescribed. Code(s): F41.1 - Generalized anxiety disorder Category: Medical Plan: Health Maintenance: - Advised that ears should be cleaned on a yearly basis to manage chronic cerumen accumulation. Patient was informed and verbally consented to the use of an ambient scribe for clinic note documentation during this visit. Plan I discussed with the patient and his mother that he has a significant amount of ear wax that needs to be removed. I explained that this is a recurring issue that requires periodic, approximately yearly, cleaning. We will proceed with irrigating his ears to remove the wax during today's visit. We also reviewed his current medications for Parkinson's disease and anxiety, and he will continue his current regimen. I noted the mother's report of a dizziness episode and mentioned it could have been related to a recent change in his Parkinson's medication dosing. Patient Instructions: - We will flush the wax out of your ears today. - Because your ears produce a lot of wax, you should plan to have them checked and cleaned about once a year. - Continue to take all of your current medications as prescribed for Parkinson's disease and anxiety.
== END 2025-05-08 14:23 | disposition home or self-care (01) ==
LOC: HO.HMCHD 13:48
PROVIDERS: PCP Student in an Organized Health Care Education/Training Program; Visit Provider Student in an Organized Health Care Education/Training Program
DX: H61.23 Impacted cerumen, bilateral (principal); G20.A1 Parkinson's disease without dyskinesia, without mention of fluctuations; F41.1 Generalized anxiety disorder

== ENCOUNTER → 2025-05-08 13:48 | Outpatient (BNVA) | payer MEDICARE, SELFPAY | PROVIDERS: PCP Student in an Organized Health Care Education/Training Program; Visit Provider Student in an Organized Health Care Education/Training Program | DX: H61.23 Impacted cerumen, bilateral (principal); G20.A1 Parkinson's disease without dyskinesia, without mention of fluctuations; F41.1 Generalized anxiety disorder; R42 Dizziness and giddiness | CPT/HCPCS: 69210; 99212 ==

== ENCOUNTER → 2025-05-20 13:47 | Outpatient (REF) | payer MEDICARE, SELFPAY ==
--- NOTE | 2025-05-20 13:52 | CA_ITS ---
Transthoracic Echocardiogram Patient (Last, First, Middle): Braxton Corea, Gender: Male Date of : 1975 Age: 49 Procedure Date: 05/20/2025 Procedure Type: Transthoracic Echocardiogram Location: OP Height: 167.64 cm Weight: 91.63 kg BSA: 2.01 m2 Heart Rate: bpm BP: 116 / 74 mmHg [employer] Job Titles: FR[place] Referring MD: Arpit Dawson MD Staffing And Scheduling Coordinator: Marquis Bryant MD Symptoms: R00.0 - Tachycardia, unspecified Study Quality: Technically Difficult ECG Rhythm: Sinus tachycardia Conclusions: - 1. Technically limited study with overall limited windows as well as patient with sinus tachycardia 2. Normal LV ejection fraction of 60 65% with impaired relaxation filling pattern 3. Limited visualization of cardiac valve with normal cardiac valvular Dopplers Findings Left Ventricle The left ventricle was not well visualized. Normal left ventricular cavity size. The left ventricular systolic function is normal. The visually estimated ejection fraction is between 60-65%. Regional wall motion abnormalities can not be excluded due to suboptimal endocardial definition. Spectral Doppler is indicative of an impaired relaxation filling pattern. Right Ventricle The right ventricle was not well visualized. Atria The left atrium is normal in size. Interatrial shunt cannot be excluded. The right atrium was not well visualized. Aortic Valve The aortic valve was not well visualized. There is no aortic valve stenosis. There is no aortic valve regurgitation. Mitral Valve The mitral valve was not well visualized. There is no mitral valve regurgitation. There is no mitral valve stenosis. Pulmonic Valve The pulmonic valve was not well visualized. Tricuspid Valve The tricuspid valve was not well visualized. Tricuspid regurgitation envelope is inadequate for calculation of right ventricular systolic pressure. Normal right atrial pressure. Great Vessels The aorta was not well visualized. The pulmonary artery was not well visualized. Venous The inferior vena cava is normal in size. Pericardium/Pleural The pericardium was not well visualized. Prior Study Comparison No significant change compared to prior study dated: 12/24/2021. Recommendations, Care & Conclusions Recommend contrast in the future to improve endocardial definition. Measurements 2D Linear Measurements IVSd: 0.68 0.6-0.9/0.6-1.0 cm LVIDd: 4.52 3.9-5.3/4.2-5.9 cm LVIDd Index: 2.25 2.4-3.2/2.2-3.1 cm/m2 LVIDs: 2.68 2.0-3.6 cm LVPWd: 0.92 0.7-1.1 cm LA Diam: 3.20 2.7-3.8/3.0-4.0 cm LAIDs Index: 1.59 1.5-2.3 cm/m2 LV Mass: 141.42 67-162/88-224 g LV Mass Index: 70.36 43-95/49-115 g/m2 LVOT Diam: 2.40 3.0+(-)1.3 cm 2D Systolic Function EF 4C: 65.90 >55% EF 2C: 59.90 >55% EF BiP: 64.20 >55% Mitral Valve MV Pk E: 0.60 MV PK A: 1.05 MV Decel Time: 116.00 E/A: 0.60 E'Lateral: 9.36 E'Medial: 8.92 E/E' Med: 6.80 E/E' Lat: 6.50 PHT: 34.00 MVA PHT: 6.47 Decel Pettis: 5.21 Aortic Valve AoV Pk Jt: 1.52 AoV Mn Jt: 1.14 AoV VTI: 0.25 AoV Pk Grad: 9.00 Aov Mn Grad: 6.00 PEDRO Cont.VTI: 3.64 LVOT LVOT Pk Jt: 1.16 LVOT Mn Jt: 0.90 LVOT VTI: 0.20 LVOT Pk Grad: 5.00 LVOT Mn Grad: 3.00 LVOT Diam: 2.40 LVOT Area: 4.52 Diastolic Function MV Pk E: 0.60 MV Pk A: 1.05 E/A: 0.60 E'Medial: 8.92 E/E' Med: 6.80 E' Laterial: 9.36 E/E' Lat: 6.50 Right Ventricle TAPSE (mm): 22.80 TVS' Jt: 12.60 Tricuspid Valve RA Press: 3.00 Great Vessels Aorta Sinus of Valsalva: 3.56 2.0-3.5 cm Ao Asc: 3.00 2.1-3.4 cm Updated in Other Vendor System with Status of Final Marquis Bryant MD electronically signed on 05/21/2025 11:05:24 AM with status of Final
--- OUTSIDE RECORDS SUMMARY | 2025-05-20 17:55 | XMS_ITS | Patient Health Record ---
Author Organization [facility] Address [address] [place] [address] Care Team Providers Care Registered Client Associate Name Role Phone Norm (RETIRED) Ramón CONCEPCION Primary Care Provide r Unavailable Oracio Claros Jr Unavailable Allergies No Known Allergies Reason [...] Options Details Miscellaneous: Marital status: single Occupation: route sales delivery driver [employer] Problems Problem Type SNOMED Code ICD Code Onset Dates Problem Status W/U Status Risk Notes Problem Rectal bleeding (08287540) Rectal bleeding (K62.5) Active confirmed Problem Diverticulitis (43351116) Diverticulitis (K57.92) Active confirmed Problem Family History of Cancer of Colon (Situation) (293314244) Family history of colon cancer (Z80.0) Active confirmed Plan Of Treatment Future Test Test Name Order Date COLONOSCOPY 10/09/2014 COLONOSCOPY 04/07/2022 Insurance Providers Payer Name Payer Address Payer Phone Subscriber Number Group Number Insured Name Patient Relationship to Insured Coverage Start Date Coverage End Date [facility] [address] [place] [address] [phone] [id number] SP ALEX SPENCER Self - patient is the insured MEDICA[place] OF [place] [address] [place] [address] [phone] [id number] ALEX SPENCER Self - patient is the insured Medical (General) History Medical History History ICD Code anxiety parkinsons chronic static encephelopathy deafness hyperflexia gait disorder muscle spasms Surgical History Surgery Date(Month/Year) cyst removal taoism Hospitalization History Reason Date(Month/Year) diverticulitis
--- OUTSIDE RECORDS SUMMARY | 2025-05-20 17:55 | XMS_ITS | Clinical Summary ---
Author Organization [facility] Address [address] [place] [address] Care Team Providers Care Wet End Tester Name Role Phone Ramón Zheng MD Primary Care Provider [phone] Allergies No known active allergies Medications baclofen [...] place to sleep or slept in a fci (including now)? No 09/19/2022 Sex and Gender [...] Vaccine 01/03/2025 04/07/2022 COVID-19 Vaccine (1 - 2024- season) 2025 Colonoscopy 05/17/2032 05/17/2022 RSV Vaccine 50 years and old er and Patients (1 - 1-dose 75+ series) 2049 Insurance [facility] MEDICARE [facility] MEDICARE Advance Directives * Full Code (Latest Code Status on File) Date Activated Date Inactivated Comments 09/16/2022 8:44 PM Question Answer Comments Decision Thoroughly Discussed with: Patient Care Teams Wet End Tester Relationship Specialty Start Date End Date Ramón Zheng MD [address] [place] [address] [place] [id number] PCP - General 09/19/22
== END ==
LOC: HO.CARD 13:47
PROVIDERS: PCP Student in an Organized Health Care Education/Training Program; Visit Provider Student in an Organized Health Care Education/Training Program
DX: R00.0 Tachycardia, unspecified (principal)
CPT/HCPCS: 93306

== ENCOUNTER → 2025-05-20 13:52 | Outpatient (BNV) | payer MEDICARE, SELFPAY | PROVIDERS: PCP Student in an Organized Health Care Education/Training Program; Visit Provider Internal Medicine Cardiovascular Disease | DX: R00.0 Tachycardia, unspecified (principal) | CPT/HCPCS: 93306 ==